=== PATIENT | male | born 1930 | race Caucasian/White ===

== ENCOUNTER 2018-05-04 16:55 | Inpatient (IN) | payer OTHER ==
[2018-05-04 18:11] VITALS: BMI 28.0
[2018-05-04] MEDS ORDERED: MAGNES/ALUMIN/SIMET 30ML UCUP PO PRN (18:43)
[2018-05-04] MEDS ORDERED: ONDANSETRON 4 MG/2 ML VIAL IV PRN (18:43)
[2018-05-04] MEDS ORDERED: MAGNESIUM HYDROXIDE 8% 30 ML PO PRN (18:44)
[2018-05-04] MEDS: NA CHLORIDE 0.9% 1,000 ML IV SCH (18:55)
[2018-05-04] MEDS: HYDROCODONE/APAP 7.5/325 MG TAB PO PRN (18:55)
[2018-05-04 19:16] LABS: Absolute Lymphocytes (CBC) 0.9 K/uL (0.7-4.9); Absolute Monocytes 1.8 K/uL (0.1-1.3); Absolute Neutrophil 16.8 K/uL (1.8-8.0); Basophils % 0.5 % (0-1.3); Eosinophils % 0.1 % (0-4.4); Hematocrit 39.9 % (39.6-49.0); Lymphocytes % 4.7 % (15.3-44.8); MCH 31.6 pg (27.0-35.0); MCV 91.8 fL (80-100); MPV 8.9 fL (7.6-11.3); Monocytes % 9.1 % (3.3-12.3); RBC Red Blood Cell Count 4.35 M/uL (4.33-5.43)
[2018-05-04 19:28] LABS: Potassium 3.7 mEq/L (3.6-5.0)
[2018-05-04 19:34] LABS: Albumin 4.1 g/dL (3.2-5.5); Bilirubin Total 0.7 mg/dL (0.3-1.2); Magnesium 1.6 mg/dL (1.8-2.5); Protein, Total 8.2 g/dL (6.0-8.3); Uric Acid 6.1 mg/dL (4.8-8.7)
[2018-05-04 20:07] LABS: Thyroid Stimulating Hormone 1.51 uIU/mL (0.34-5.60)
[2018-05-04] MEDS: ENOXAPARIN 40 MG/0.4 ML SQ SCH (20:25)
[2018-05-04] MEDS: PIPER/TAZO/NS 3.375gm 3.375 GM/100 ML BAG IVPB SCH (20:25)
[2018-05-04] MEDS: ATORVASTATIN 10 MG TAB PO SCH (20:26)
[2018-05-04] MEDS ORDERED: HOME MED 1 EA UNK (Pravastatin Sodium [Pravachol] 20 MG) PO SCH (21:00)
[2018-05-04] MEDS: ALPRAZOLAM 0.25 MG TABLET PO PRN (21:05)
[2018-05-04 21:43] LABS: Urine Appearance CLEAR; Urine Bilirubin NEGATIVE (NEG); Urine Blood NEGATIVE (NEG); Urine Color YELLOW; Urine Glucose NEGATIVE (NEG); Urine Protein NEGATIVE (NEG); Urine Specific Gravity 1.015 (1.005-1.030); Urine Urobilinogen 0.2 mg/dL (0.2-1.0); Urine pH 6.5 (5.0-7.0)
[2018-05-04 22:26] LABS: Blood Morphology Comment NOT SEEN (NOT SEEN); Platelet Estimate ADEQ; Urine White Blood Cell Casts OK
[2018-05-04 22:30] LABS: Urine Amorphous Sediment TRACE /HPF (NONE SEEN); Urine Bacteria <20 /HPF (NONE SEEN); Urine Culture Reflex Order NOT NEEDED; Urine RBC <5 /HPF (NONE SEEN)
[2018-05-05] MEDS: HYDROCODONE/APAP 7.5/325 MG TAB PO PRN ×4 (01:05→18:30)
[2018-05-05] MEDS: PIPER/TAZO/NS 3.375gm 3.375 GM/100 ML BAG IVPB SCH ×3 (01:06→16:32)
[2018-05-05] MEDS: NA CHLORIDE 0.9% 1,000 ML IV SCH ×4 (03:00→20:45)
--- NOTE | 2018-05-05 05:11 | HP ---
Date of Admission: 05/04/2018 Chief Complaint: Arm pain and chills. History Of Present Illness: This is an 87-year-old male patient, who was doing fine until all of a s udden this morning, he started to have some pain in his right arm near elbow area. He also noted rivera e swelling. Pain was worse with any movement. He denies any fall or injury. He started having chil ls when he came to office; and when he was sitting in exam room, he was really having back chills wit h feeling really bad and he was covered with blankets at the office and he was still shivering. Afte r I examined him, decision was made to admit him to the hospital. Review of Systems: Constitutional: As mentioned above. Musculoskeletal: As mentioned above. All other systems reviewed and negative. Medications: List reviewed. Allergies: NO KNOWN ALLERGIES. 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 Social History: Negative for smoking and alcohol use. Family History: Significant for leukemia and lung cancer. Past Surgical History: Hernia repair. Physical Examination: Vital Signs: Initial vital signs; temperature 103.6, pulse 109, respiratory rate 18, blood pressure 149/81, height 5 feet 3 inches, weight 158 pounds. General: Patient appearing ill, not feeling good at all. Not in any respiratory distress. HEENT: Head atraumatic, normocephalic. Conjunctivae nonerythematous. Sclerae white. Mouth, no thr ush or edema noted. Ears/Nose, no mass, lesion, discharge noted. Neck: Supple. No JVD, lymph nodes, bruit, thyromegaly noted. Lungs: Bilateral good equal air entry. Clear to auscultation. No rhonchi. No rales. Heart: Normal heart sounds, no murmur or gallop. Abdomen: Soft, bowel sounds normal. No guarding, rigidity, tenderness, mass, hepatosplenomegaly, dis tention, or bruit noted. Extremities: Presence of some swelling of the elbow region with painful range of motion. Skin over the right upper extremity is slightly warm to touch. No open wound. Skin: No rash, ulcer, cellulitis. Lymphatics: No lymph node enlargement in neck, supraclavicular, infraclavicular region. Neuro: No focal neurological deficit. Chest: Unremarkable. External Genitalia: Deferred. Rectal: Deferred. Laboratory Data: White count 19.7, hemoglobin 13.7, platelets 314. Sodium 133, potassium 3.7, chlor malaika 97, bicarb 25. BUN 11, creatinine 0.91, glucose 159, magnesium 1.6. Liver function tests unrema rkable. Procalcitonin 0.09, TSH 1.51. Urinalysis pending. Uric acid 6.1. Impression: 1.Cellulitis, right upper extremity. 2.Rule out sepsis. 3.Hypertension. 4.Hyperlipidemia. 5.Osteoarthritis, multiple sites. 6.Gastroesophageal reflux disease. 7.Impaired fasting glucose. Plan: Admit the patient to hospital for further evaluation and management of this problem. The ana paula ent is appropriate for inpatient and is expected to spend 2 midnights in hospital. We will go ahead and continue home medications per order. Start the patient on IV antibiotics per order. DVT prophyl axis will be given. I will see him tomorrow for followup. We will follow up on culture results. We will get x-ray done on his elbow region. The patient's daughter called after he was admitted to the hospital, who lives out of town and wanted some information. The patient has given me his permissio n to communicate with his daughter, and I did call her back and details were discussed with her. UQINTEN/YANDY Voice ID: [id number]
[2018-05-05 07:18] LABS: BUN Blood Urea Nitrogen 10 mg/dL (6-20); Bicarbonate 26 mEq/L (21-31); Glucose Level 169 mg/dL (65-120); Magnesium 1.7 mg/dL (1.8-2.5); Potassium 3.7 mEq/L (3.6-5.0); Sodium Level 136 mEq/L (135-145)
[2018-05-05] MEDS ORDERED: POTASSIUM 25 MEQ EFFERV TAB PO ONE (07:39)
[2018-05-05] MEDS: PANTOPRAZOLE 40MG TABLET PO SCH (08:06)
[2018-05-05] MEDS: ENOXAPARIN 40 MG/0.4 ML SQ SCH (08:07)
[2018-05-05] MEDS: ASPIRIN EC 325 MG TABLET PO SCH (08:07)
[2018-05-05] MEDS: AMLODIPINE 10 MG TAB PO SCH (08:30)
[2018-05-05] MEDS: MORPHINE 4 MG/ML SYR IV PRN ×3 (08:36→20:46)
[2018-05-05] MEDS ORDERED: HOME MED 1 EA UNK (Aspirin [Aspirin Ec 325 Mg] 325 MG) PO SCH (09:00)
[2018-05-05] MEDS ORDERED: MAGNESIUM SULFATE 1 gm IVPB 1 GM/100 ML BAG IV ONE (09:00)
[2018-05-05 11:07] LABS: A1c Component 0.61 mg/dL; Hemoglobin A1c 6.1 % (4-6.0)
[2018-05-05] MEDS: ATORVASTATIN 10 MG TAB PO SCH (20:45)
[2018-05-05] MEDS: ACETAMINOPHEN 500 MG TAB PO PRN (22:59)
[2018-05-05] MEDS: ALPRAZOLAM 0.25 MG TABLET PO PRN (23:00)
--- NOTE | 2018-05-05 23:44 | PN ---
Date of Progress Note: 05/05/2018 Subjective: The patient was seen this morning for followup. No new complaints or problems reported by patient. Lying in bed, not in any distress. Continues to have pain and swelling of the right upp er extremity all the way from the elbow to the right wrist area as he described today. Objective: Vital Signs: Reviewed. HEENT: Unremarkable. Lungs: Clear to auscultation. Heart: Heart sounds normal. Abdomen: Soft. Bowel sounds normal. No guarding, rigidity, tenderness, or distention. Extremities: No leg edema. Right upper extremity shows soft tissue swelling around elbow and around wrist area. Laboratory Data: Reviewed. Blood culture result pending. Impression: 1.Cellulitis, right upper extremity. 2.Hypertension. 3.Hyperlipidemia. 4.Osteoarthritis, multiple sites. Plan: We will go ahead and follow up on culture results. Continue Zosyn. The patient still has fev er but the magnitude of temperature spike is lower compared to what it was yesterday. We will get an echo with Doppler tomorrow to rule out any vegetation. It is surprising and little concerning and n ot sure why he keeps on having this recurrent infection as he had prior hospital admission about 5 months ago for the similar problem. QUINTEN/MODL Voice ID: [id number] Report ID: [id number]
[2018-05-06] MEDS: PIPER/TAZO/NS 3.375gm 3.375 GM/100 ML BAG IVPB SCH ×3 (00:20→17:18)
[2018-05-06] MEDS: MORPHINE 4 MG/ML SYR IV PRN ×5 (01:19→20:17)
[2018-05-06] MEDS: NA CHLORIDE 0.9% 1,000 ML IV SCH ×4 (03:00→20:12)
[2018-05-06] MEDS: HYDROCODONE/APAP 7.5/325 MG TAB PO PRN ×4 (04:09→21:23)
[2018-05-06 04:42] LABS: Absolute Monocytes 2.4 K/uL (0.1-1.3); Absolute Neutrophil 13.8 K/uL (1.8-8.0); Basophils % 0.8 % (0-1.3); Hematocrit 39.4 % (39.6-49.0); Lymphocytes % 5.8 % (15.3-44.8); MCV 92.4 fL (80-100); MPV 8.5 fL (7.6-11.3); Monocytes % 14.1 % (3.3-12.3); RBC Red Blood Cell Count 4.26 M/uL (4.33-5.43)
[2018-05-06 05:13] LABS: BUN Blood Urea Nitrogen 9 mg/dL (6-20); Bicarbonate 25 mEq/L (21-31); Glucose Level 159 mg/dL (65-120); Potassium 3.7 mEq/L (3.6-5.0); Sodium Level 135 mEq/L (135-145)
[2018-05-06] MEDS ORDERED: POTASSIUM CL SA 10 MEQ TAB PO ONE (06:30)
[2018-05-06] MEDS: AMLODIPINE 10 MG TAB PO SCH (08:11)
[2018-05-06] MEDS: PANTOPRAZOLE 40MG TABLET PO SCH (08:11)
[2018-05-06] MEDS: ENOXAPARIN 40 MG/0.4 ML SQ SCH (08:12)
[2018-05-06] MEDS: ASPIRIN EC 325 MG TABLET PO SCH (08:14)
--- NOTE | 2018-05-06 12:10 | RAD REPORT ---
EXAM DESCRIPTION: MRI - Elbow Right Wo Cont - 05/06/2018 11:56 am CLINICAL HISTORY: cellulitis Pain, swelling COMPARISON: No comparisons FINDINGS: A moderate elbow joint effusion is seen. Arthritic changes affect the elbow joint with los s of joint space and prominent osteophyte. Reticulation of the fat along the along the posterior and medial aspect of the elbow is seen. Edema i s present in the subcutaneous tissues in this region as well as the anterior forearm musculature. No focal fluid collection to suggest abscess. No finding to suggest osteomyelitis. Biceps tendon is intact. Triceps tendon is intact. Medial and lateral collateral ligaments of the elb ow are intact, albeit mildly thickened. IMPRESSION: Moderate elbow joint effusion is seen. Edema is seen the skin, subcutaneous tissues musc les surrounding the elbow joint, favoring inflammation/infection. No drainable abscess or osteomyelit is findings are appreciated.
--- NOTE | 2018-05-06 15:03 | ECHO ---
HEIGHT: 5 ft 3 in WEIGHT: 158 lb 0 oz DATE OF STUDY: 05/06/[address]: Gabe Jasmine MD 2-DIMENSIONAL: YES M.MODE: YES DOPPLER: YES COLOR FLOW: YES TDS: PORTABLE: DEFINITY: BUBBLE STUDY: DIAGNOSIS: RULE OUT ENDOCARDITIS CARDIAC HISTORY: CATHERIZATION: SURGERY: PROSTHETIC VALVE: PACEMAKER: MEASUREMENTS (cm) DIASTOLIC (NORMALS) SYSTOLIC (NORMALS) IVSd 1.0 (0.6-1.2) LA Diam 3.7 (1.9-4.0) LVEF 60-69% LVIDd 4.9 (3.5-5.7) LVIDs 3.6 (2.0-3.5) %FS 26% LVPWd 1.0 (0.6-1.2) Ao Diam 2.7 (2.0-3.7) 2 DIMENSIONAL ASSESSMENT: RIGHT ATRIUM: NORMAL LEFT ATRIUM: NORMAL RIGHT VENTRICLE: NORMAL LEFT VENTRICLE: NORMAL TRICUSPID VALVE: NORMAL MITRAL VALVE: NORMAL PULMONIC VALVE: NORMAL AORTIC VALVE: NORMAL PERICARDIAL EFFUSION: NONE AORTIC ROOT: NORMAL LEFT VENTRICULAR WALL MOTION: NORMAL DOPPLER/COLOR FLOW: IMPAIRED LEFT VENTRICULAR RELAXATION COMMENTS: NORMAL 2-DIMENSIONAL ECHOCARDIOGRAM. IMPAIRED LEFT VENTRICULAR RELAXATION. TECHNOLOGIST: ALEXI AGUIRRE
[2018-05-06] MEDS ORDERED: NA CHLORIDE 0.9% 1,000 ML ONE (17:24)
--- NOTE | 2018-05-06 19:57 | PN ---
Date of Progress Note: 05/06/2018 Subjective: The patient was seen this morning for followup. No new complaints or problems reported by the patient. He was sitting in the chair, feeling somewhat better today compared to last 2 days. He still has lot of pain in his right elbow and right wrist area. Swelling remains unchanged in thi s area. Objective: Vital Signs: Reviewed. The patient continues to have low-grade fever. HEENT: Unremarkable. Lungs: Clear to auscultation. Heart: Heart sounds normal. Abdomen: Soft. Bowel sounds normal. No guarding, rigidity, tenderness, or distention. Extremities: No leg edema. Swelling around the right elbow and right wrist remains unchanged. Laboratory Data: White count is elevated at 17.3, but better than what it was day before yesterday [facility] admission. Hemoglobin today 13.6, platelets 293. Sodium 135, potassium 3.7, chloride 99, bicarb 25, BUN 9, creatinine 0.80, glucose 159, magnesium 2, procalcitonin 0.17. Impression: 1.Cellulitis, right upper extremity. 2.Hypertension. 3.Hyperlipidemia. 4.Osteoarthritis, multiple sites. Plan: The patient's blood culture remains negative. We will continue Zosyn. He is feeling somewhat better today compared to last 2 days. White count is slightly better. We will continue current ant ibiotics. I will go ahead and get an MRI done on the right elbow and right wrist to check for any si gnificant effusion. Clinically, at least it does not appear to be the case. We will consider starti ng nonsteroidal anti-inflammatory medication either today or tomorrow. Continue pain medication per order. Ambulati on was suggested. QUINTEN/MODL Voice ID: [id number] Report ID: [id number]
[2018-05-06] MEDS: ALPRAZOLAM 0.25 MG TABLET PO PRN (20:10)
[2018-05-06] MEDS: ATORVASTATIN 10 MG TAB PO SCH (20:10)
[2018-05-07] MEDS: MORPHINE 4 MG/ML SYR IV PRN ×5 (00:22→20:18)
[2018-05-07] MEDS: PIPER/TAZO/NS 3.375gm 3.375 GM/100 ML BAG IVPB SCH ×3 (00:22→17:44)
[2018-05-07] MEDS: ACETAMINOPHEN 500 MG TAB PO PRN (01:02)
[2018-05-07] MEDS: NA CHLORIDE 0.9% 1,000 ML IV SCH ×2 (01:56→11:00)
[2018-05-07] MEDS: HYDROCODONE/APAP 7.5/325 MG TAB PO PRN ×3 (03:33→19:22)
[2018-05-07 07:05] LABS: Potassium 3.7 mEq/L (3.6-5.0)
[2018-05-07] MEDS: ASPIRIN EC 325 MG TABLET PO SCH (08:55)
[2018-05-07] MEDS: PANTOPRAZOLE 40MG TABLET PO SCH (08:55)
[2018-05-07] MEDS: ENOXAPARIN 40 MG/0.4 ML SQ SCH (08:55)
[2018-05-07] MEDS: AMLODIPINE 10 MG TAB PO SCH (08:56)
[2018-05-07] MEDS ORDERED: IBUPROFEN 400 MG TAB PO SCH (09:00)
[2018-05-07] MEDS ORDERED: POTASSIUM 25 MEQ EFFERV TAB PO ONE (09:00)
[2018-05-07] MEDS: IBUPROFEN 400 MG TAB PO SCH ×2 (10:18→20:03)
--- NOTE | 2018-05-07 14:30 | PN ---
Date of Progress Note: 05/07/2018 Subjective: The patient was seen this morning for followup. His daughter was present with him at [facility]. He was still having lot of pain in his elbow and wrist. No new complaints or problems report ed. Objective: Vital Signs: Reviewed. HEENT: Unremarkable. Lungs: Clear to auscultation. Heart: Sounds normal. Abdomen: Soft. Bowel sounds normal. No guarding, rigidity, tenderness, or distention. Extremities: No leg edema. Presence of swelling around the right elbow and right wrist present unch anged from yesterday, but better compared to what it was on the very first day when he came into the hospital. Laboratory Data: Sodium 136, potassium 3.7, chloride 101, bicarb 25, BUN 12, creatinine 0.85, glucos e 162. Blood culture remains negative. MRI of the right elbow shows moderate joint effusion. [facility] of [facility]. Echocardiogram was unremarkable, normal ejection fractur e. Impression: 1.Cellulitis, right upper extremity. 2.Rule out pseudogout. 3.Hypertension. 4.Osteoarthritis, multiple sites. Plan: We will go ahead and continue current antibiotics. We will add ibuprofen per order, and see h im tomorrow morning for followup. We will get blood work done tomorrow morning including parathyroid hormone level. The patient's TSH is normal. We will get phosphorus level along with some other rou esa labs. We will also get a rheumatoid factor and SUSIE done. Details were discussed with the patie nt's daughter and the patient regarding this. The patient to visit fig washer on outpatient basemy s. The patient's son sees a fig washer in [place] and will try to get appointment with the same specialist in [place]. QUINTEN/MODL Voice ID: [id number] Report ID: [id number]
[2018-05-07] MEDS: ATORVASTATIN 10 MG TAB PO SCH (20:04)
[2018-05-08] MEDS: MORPHINE 4 MG/ML SYR IV PRN ×3 (00:19→09:29)
[2018-05-08] MEDS: PIPER/TAZO/NS 3.375gm 3.375 GM/100 ML BAG IVPB SCH ×3 (00:19→18:14)
[2018-05-08 05:20] LABS: Absolute Lymphocytes (CBC) 1.2 K/uL (0.7-4.9); Absolute Monocytes 1.8 K/uL (0.1-1.3); Absolute Neutrophil 11.9 K/uL (1.8-8.0); Basophils % 0.6 % (0-1.3); Eosinophils % 0.7 % (0-4.4); Hematocrit 36.3 % (39.6-49.0); Lymphocytes % 7.8 % (15.3-44.8); MCH 32.3 pg (27.0-35.0); MCV 92.7 fL (80-100); MPV 8.2 fL (7.6-11.3); Monocytes % 12.1 % (3.3-12.3); RBC Red Blood Cell Count 3.91 M/uL (4.33-5.43)
[2018-05-08] MEDS: HYDROCODONE/APAP 7.5/325 MG TAB PO PRN ×3 (05:30→18:18)
[2018-05-08 05:50] LABS: Phosphorus 3.1 mg/dL (2.5-4.3); Potassium 3.6 mEq/L (3.6-5.0)
[2018-05-08] MEDS: NA CHLORIDE 0.9% 1,000 ML IV SCH (07:00)
[2018-05-08] MEDS: ENOXAPARIN 40 MG/0.4 ML SQ SCH (08:40)
[2018-05-08] MEDS: IBUPROFEN 400 MG TAB PO SCH ×3 (08:41→20:30)
[2018-05-08] MEDS: PANTOPRAZOLE 40MG TABLET PO SCH (08:41)
[2018-05-08] MEDS: AMLODIPINE 10 MG TAB PO SCH (08:42)
[2018-05-08] MEDS: ASPIRIN EC 325 MG TABLET PO SCH (08:43)
[2018-05-08] MEDS ORDERED: POTASSIUM 25 MEQ EFFERV TAB PO ONE (09:00)
[2018-05-08 09:58] LABS: Rheumatoid Factor NEG (NEG)
--- NOTE | 2018-05-08 11:44 | PN ---
Date of Progress Note: 05/08/2018 Subjective: The patient was seen this morning for followup. No new complaints or problems reported by the patient. He was sitting at bedside, still continues to have lot of pain in his right elbow, r ight wrist and left wrist area. Overall, it is better than before. No nausea. No vomiting. Objective: Vital Signs: Reviewed. HEENT: Unremarkable. Lungs: Clear to auscultation. Heart: Heart sounds normal. Abdomen: Soft. Bowel sounds normal. No guarding, rigidity, tenderness, or distention. Extremities: No leg edema. Right elbow and right wrist exam remains unchanged from yesterday. Left wrist exam remains unchanged. Left wrist pain and swelling are likely due to infiltrated IV. Laboratory Data: White count 15.1, hemoglobin 12.6, platelets 396. Sodium 139, potassium 3.6, chlor malaika 103, bicarb 25, BUN 12, creatinine 0.84, glucose 149. Ferritin level pending. Serum iron 16. Impression: 1.Cellulitis, right upper extremity. 2.Rule out pseudogout. 3.Hypertension. 4.Hyperlipidemia. 5.Osteoarthritis, multiple sites. Plan: We will continue current medications, IV antibiotics, Zosyn, and we will continue ibuprofen 60 0 mg 3 times a day. Ambulation was encouraged. I will see him tomorrow for followup. Possible disc harge in the next couple of days. Phosphorus level is normal. The patient's rheumatoid factor, SUSIE and parathyroid hormone level is pending. QUINTEN/MODL Voice ID: [id number] Report ID: [id number]
--- NOTE | 2018-05-08 12:36 | RAD REPORT ---
EXAM DESCRIPTION: RAD - Elbow Right 3 View - 05/08/2018 12:28 pm CLINICAL HISTORY: rule out pseudogout Elbow pain and swelling COMPARISON: Elbow Right Wo Cont dated 05/06/2018 FINDINGS: Soft tissue swelling is seen affecting the elbow. Mild osteoarthritic changes are noted. N o marginal or non-marginal erosions seen. An elbow joint effusion is likely present. No aggressive ma rrow lesion.
--- NOTE | 2018-05-08 12:37 | RAD REPORT ---
EXAM DESCRIPTION: RAD - Wrist Right 3 View - 05/08/2018 12:28 pm CLINICAL HISTORY: rule out pseudogout Pain and swelling COMPARISON: Wrist Right 3 View dated 12/09/2017 FINDINGS: Mild osteoarthritic changes are present involving the radiocarpal joint as well as the fir st carpometacarpal joint. Soft tissue swelling is seen about the wrist. Aortic atherosclerosis noted . No fracture, dislocation or erosion seen.
[2018-05-08 15:49] LABS: Ferritin 453.6 ng/ml (23.9-336.2)
[2018-05-08] MEDS: ATORVASTATIN 10 MG TAB PO SCH (20:30)
[2018-05-08] MEDS: ALPRAZOLAM 0.25 MG TABLET PO PRN (20:30)
[2018-05-09] MEDS: HYDROCODONE/APAP 7.5/325 MG TAB PO PRN ×4 (00:19→21:07)
[2018-05-09] MEDS: PIPER/TAZO/NS 3.375gm 3.375 GM/100 ML BAG IVPB SCH ×3 (00:20→17:25)
[2018-05-09 04:41] LABS: BUN Blood Urea Nitrogen 12 mg/dL (6-20); Bicarbonate 28 mEq/L (21-31); Glucose Level 156 mg/dL (65-120); Potassium 3.2 mEq/L (3.6-5.0); Sodium Level 138 mEq/L (135-145)
[2018-05-09] MEDS ORDERED: POTASSIUM 25 MEQ EFFERV TAB PO ONE (04:54)
[2018-05-09] MEDS: ACETAMINOPHEN 500 MG TAB PO PRN (05:27)
[2018-05-09] MEDS: ENOXAPARIN 40 MG/0.4 ML SQ SCH (08:42)
[2018-05-09] MEDS: ASPIRIN EC 325 MG TABLET PO SCH (08:43)
[2018-05-09] MEDS: AMLODIPINE 10 MG TAB PO SCH (08:43)
[2018-05-09] MEDS: PANTOPRAZOLE 40MG TABLET PO SCH (08:44)
[2018-05-09] MEDS: IBUPROFEN 400 MG TAB PO SCH ×4 (08:44→23:10)
[2018-05-09] MEDS ORDERED: POTASSIUM CL SA 10 MEQ TAB PO ONE (13:57)
[2018-05-09] MEDS: ATORVASTATIN 10 MG TAB PO SCH (21:07)
[2018-05-09] MEDS: ALPRAZOLAM 0.25 MG TABLET PO PRN (23:10)
--- NOTE | 2018-05-10 00:02 | PN ---
Date of Progress Note: 05/09/2018 Subjective: The patient was seen this morning for followup. No new complaints or problems reported by the patient. Lying in bed, not in any distress. Still having lot of pain in his right wrist and right elbow. Objective: Vital Signs: Reviewed. HEENT: Examination unremarkable. Lungs: Clear to auscultation. Heart: Heart sounds normal. Abdomen: Soft. Bowel sounds normal. No guarding, rigidity, tenderness, or distention. Extremities: No leg edema. Right elbow swelling is significantly better. Right wrist swelling is u nchanged from yesterday. Laboratory Data: Sodium 138, potassium 3.2, chloride 100, bicarb 28, BUN is 12, creatinine 0.76, glu cose 156. Impression: 1.Cellulitis, right upper extremity. 2.Rule out pseudogout. 3.Osteoarthritis, multiple sites. 4.Hypertension. 5.Hypokalemia. Plan: We will replace potassium per electrolyte replacement protocol. Continue current antibiotics and ibuprofen per order. Ambulation was encouraged. Orthopedic consultation was requested from Dr. Meyer to see if he can perform arthrocentesis to obtain some synovial fluid so we can send it for appropriate studies like uric acid and CPPD crystals and cell count. Details were discussed with Dr German Meyer and he has decided at this point not to perform any arthrocentesis of the elbow region co nsidering the swelling is better and with conservative treatment the patient has improved and doing a rthrocentesis in the wrist as described, so he will follow up on the patient again tomorrow, and by t omorrow if patient's condition is better/stable, we will plan to discharge him to go home tomorrow. If not tomorrow, may be day after tomorrow depending on his condition. We will repeat blood work tomorr ow morning. QUINTEN/MODL Voice ID: [id number] Report ID: [id number]
[2018-05-10] MEDS: PIPER/TAZO/NS 3.375gm 3.375 GM/100 ML BAG IVPB SCH ×2 (00:40→08:47)
[2018-05-10] MEDS: HYDROCODONE/APAP 7.5/325 MG TAB PO PRN ×2 (03:09→08:46)
[2018-05-10 04:19] LABS: Absolute Lymphocytes (CBC) 0.9 K/uL (0.7-4.9); Absolute Monocytes 1.4 K/uL (0.1-1.3); Absolute Neutrophil 8.9 K/uL (1.8-8.0); Basophils % 0.8 % (0-1.3); Eosinophils % 2.4 % (0-4.4); Hematocrit 34.6 % (39.6-49.0); MCH 31.7 pg (27.0-35.0); MCV 92.9 fL (80-100); Monocytes % 12.3 % (3.3-12.3); RBC Red Blood Cell Count 3.73 M/uL (4.33-5.43)
[2018-05-10 04:26] LABS: BUN Blood Urea Nitrogen 12 mg/dL (6-20); Bicarbonate 28 mEq/L (21-31); Glucose Level 147 mg/dL (65-120); Magnesium 1.9 mg/dL (1.8-2.5); Potassium 3.6 mEq/L (3.6-5.0); Sodium Level 140 mEq/L (135-145)
[2018-05-10] MEDS ORDERED: POTASSIUM 25 MEQ EFFERV TAB PO ONE (06:00)
[2018-05-10] MEDS: ASPIRIN EC 325 MG TABLET PO SCH (08:45)
[2018-05-10] MEDS: AMLODIPINE 10 MG TAB PO SCH (08:45)
[2018-05-10] MEDS: PANTOPRAZOLE 40MG TABLET PO SCH (08:45)
[2018-05-10] MEDS: ENOXAPARIN 40 MG/0.4 ML SQ SCH (08:45)
[2018-05-10] MEDS: IBUPROFEN 400 MG TAB PO SCH (08:46)
[2018-05-10 08:47] VITALS: BP 133/63
[2018-05-10 08:51] VITALS: TEMP 97.3
[2018-05-10 11:06] VITALS: O2SAT 99
--- NOTE | 2018-05-10 17:25 | CON ---
Date of Consultation: 05/09/2018 History Of Present Illness: This is my first time seeing this patient to my knowledge. He apparentl y on Wednesday of this week started having pain in his forearm, elbow, wrist and hand, was accompanie d by loss of motion of the wrist as well as elbow. He was seen and admitted. He has an MRI of the e lbow, which shows soft tissue swelling. He also has x-ray of the wrist, which demonstrates some arth rosclerotic calcifications. I was not consulted to see him until Wednesday, the . On my visualizat ion of him, he no longer had any erythema. He did have some swelling of the hand and fingers. There did not appear to be any effusion of the elbow or wrist, although he did have some swelling in the w rist. He did have some pain with motion of the fingers as well as the wrist; however, this was pain more less with extremes of motion. He did not have any pain with gentle range of motion. He is neur ovascularly intact. Review of his laboratories revealed that he had a significantly high white count ; however, it has been coming down steadily with antibiotics as well as anti-inflammatories. He also was apparently fairly febrile at 103 when he was admitted; however, now has been afebrile essentiall y since admission if febrile would be 101.5. He has had a slightly elevated temperature in the area of 100 and 99, however, not suggesting surgical fever. At this point, I do not really think there is enough fluid in the wrist to aspirate and there is no fluid in the elbow to aspirate. Assessment: I believe this gentleman for some reason has a lot of swelling and pain and inflammation of his right forearm, wrist, hand and elbow. This has essentially mostly resolved, now with continu ed swelling in his hand and some difficulty with wrist motion. I believe that this makes the most se nse that he did have cellulitis of the forearm, which caused swelling in his hands as a residual prob mark, which is now clearing. I spoke with Dr. Jasmine, who says that this has happened to him in the [facility] t and this is his second episode. These episodes are not apparently related to any specific trauma o r any other incident. We will go head and acquire a sed rate. Dr. Jasmine says that he will get a whit e count tomorrow. If he is afebrile and white count is improving, there is a possibility of discharg ing with instructions for elevation and range of motion of the hand. If he is discharged, I will hav e him follow up with me if he has any increasing pain or problems in a week and ensure that he is doi ng well. /YANDY Voice ID: [id number] Report ID: [id number]
--- NOTE | 2018-05-11 07:34 | DS ---
Date of Discharge: 05/10/2018 Disposition: Discharged to go home. Physical Examination: HEENT: Unremarkable. Lungs: Clear to auscultation. Heart: Sounds normal. Abdomen: Soft, bowel sounds normal. No guarding, rigidity, tenderness, or distention. Extremities: No leg edema. Minimum swelling of the right wrist, but right elbow swelling has almost completely resolved. Laboratory Data: Initial white count when he was admitted to the hospital was 19.7, hemoglobin 13.7, platelets 314. Last white count today 11.7, hemoglobin 11.8, platelets 474. His last chemistry today; sodium 140, potassium 3.6, chloride 101, bicarb 28, BUN 12, creatinine 0.76, glucose 147, magnesium 1.9. His C-reactive protein 208, done yesterday and ESR 82, done yesterday. Wrist x- ray and elbow x-ray show some changes of arthritis, but no fracture, no other acute changes. MRI of the right elbow shows joint effusion, no other acute findings. Discharge Medications: 1. Continue all prior home medications. 2. Augmentin 875 mg twice a day for 1 week. 3. Ibuprofen 600 mg p.o. 3 times a day for 1 week. Followup: Follow up at my office in 1 week. Hospital Course: An 87-year-old male patient, came into my office with complaints of pain in his arm and chills. Please see dictated H and P for more information. After the patient was evaluated at the office, he was admitted to the hospital with cellulitis of right upper extremity. He also had swelling of the right elbow and right wrist joint area. Uric acid level was normal and diagnosis of pseudogout was considered. Elbow MRI and wrist MRI were ordered. The patient got elbow MRI and he refused to have wrist MRI. He was started on IV Zosyn from the beginning and white count slowly, but surely improved on a day -to-day basis. We added ibuprofen 600 mg 3 times a day and with the combination of treatment, he became afebrile, white count came down to almost normal today. His pain has improved significantly. Orthopedic consultation was requested from Dr. Meyer and was requested for him to do arthrocentesis and to send synovial fluid for cell count, uric acid crystal and CPPD crystal, and Dr. Meyer evaluated the patient and suggested not to do any arthrocentesis considering the patient's condition was much better. The patient 's son sees a heel attacher in [place] and I have advised the patient's daughter to make sure that if that heel attacher can see the patient for consultation and she will schedule appointment for that. The patient is ambulating well. He sees his pain management physician, Dr. Montes De Oca for chronic pain management and takes hydrocodone and he was advised to follow up with him as soon as he gets discharge from the hospital. Final Diagnoses: 1. Cellulitis, right upper extremity. 2. Rule out pseudogout. 3. Hypertension. 4. Hyperlipidemia. 5. Anemia, unspecified. 6. Osteoarthritis, multiple sites. 7. Gastroesophageal reflux disease. 8. Impaired fasting glucose. QUINTEN/MODL Voice ID: [id number] Report ID: [id number]
== END 2018-05-10 10:31 | disposition home or self-care (01) | DRG 603 ==
LOC: 4TH 17:07
PROVIDERS: ADMIT Internal Medicine; ATTEND Internal Medicine
DX: L03.113 Cellulitis of right upper limb (principal); I10 Essential (primary) hypertension; E78.5 Hyperlipidemia, unspecified; M11.221 Other chondrocalcinosis, right elbow; D64.9 Anemia, unspecified; M15.9 Polyosteoarthritis, unspecified; K21.9 Gastro-esophageal reflux disease without esophagitis; R73.01 Impaired fasting glucose; E87.6 Hypokalemia
CPT/HCPCS: 36415; 80048; 80053; 81001; 82728; 83036; 83540; 83735; 83970; 84100; 84132; 84145; 84443; 84466; 84550; 85025; 85652; 86038; 86140; 86430; 87040; 87086; 87088; 93306; J1650; J2543; J3475; J7030

== ENCOUNTER 2019-06-09 11:05 | Inpatient (IN) | payer OTHER ==
--- OUTSIDE RECORDS SUMMARY | 2019-06-09 11:09 | XMS REPORT | Clinical Summary ---
:1930 Author Organization [facility] Address [address] [place] [address] Care Team Providers Name Role Phone Gabe Jasmine MD Primary Care Provider Allergies Active Allergy Reactions Severity Noted Date Comments Lactase High 06/01/2018 Medications Medication Sig Dispensed Refills Start End Status Date Date amLODIPine (NORVASC) Take 10 mg by 3 Active 10 mg tablet mouth daily. 8 pantoprazole TAKE 1 TABLET BY 3 Active (PROTONIX) 40 MG EC MOUTH EVERY DAY 8 tablet 30 MINUTES BEFORE BREAKFAST pravastatin Take 20 mg by 3 Active (PRAVACHOL) 20 MG mouth every 8 tablet evening. multivit-min36/iron/fo Take 1 tablet by 0 Active lic acid (GERITOL mouth daily. COMPLETE ORAL) FLUZONE HIGH-DOSE TO BE 0 Active 2017-19, PF, 180 ADMINISTERED BY 8 mcg/0.5 mL syringe IM PHARMACIST FOR injection IMMUNIZATION metoprolol tartrate Take 25 mg by 6 Active (LOPRESSOR) 25 mg mouth 2 (two) 8 tablet times a day. HYDROcodone-acetaminop Take 1 tablet by 0 Active hen (NORCO) 7.5-325 mg mouth 4 (four) 4 per tablet times a day. predniSONE (DELTASONE) 1 tab for 2 30 tablet 2 Active 5 mg tablet weeks then half 8 019 a tablet for 2 weeks hydroxychloroquine Take 1.5 tablets 45 tablet 3 Active (PLAQUENIL) 200 mg (300 mg total) 8 021 tablet by mouth daily. predniSONE (DELTASONE) TAKE 1 TABLET BY 30 tablet 0 Active 5 mg tablet MOUTH EVERY DAY 9 020 HYDROcodone-acetaminop Take 1 tablet by 0 Discontinued hen (NORCO) 7.5-325 mg mouth 3 (three) 8 018 per tablet times a day. predniSONE (DELTASONE) Take 3 tablets 90 tablet 0 Discontinued 5 mg tablet (15 mg total) by 8 018 mouth daily for 30 days. predniSONE (DELTASONE) Take 3 tablets 90 tablet 1 Discontinued 5 mg tablet (15 mg total) by 8 018 mouth daily for 30 days. carvedilol (COREG) Take 3.125 mg by 0 Discontinued 3.125 MG tablet mouth daily. 8 018 predniSONE (DELTASONE) Take 2 tablets 90 tablet 1 Discontinued 5 mg tablet of prednisone 8 018 for 2 more weeks. Then 1 tablet of prednisone for 1 week predniSONE (DELTASONE) Take 1 tablet (5 30 tablet 1 Discontinued 5 mg tablet mg total) by 8 018 mouth daily for 30 days. 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 10/17/2018 Telephone Rheumatology Tre Tan MA 09/05/2018 Telephone Rheumatology Tre Tan MA 09/03/2018 Refill Rheumatology Carol Ann Moe, 07/14/2018 Office Visit Rheumatology Carol Ann Moe, 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) (Primary Dx); DO USP systemic steroid user; Essential hypertension 07/05/2018 Telephone Rheumatology Tre Tan MA 06/15/2018 Hospital Encounter Radiology Fakoya, Latifa, RS3PE syndrome ( remitting DO seronegative symmetrical synovitis with pitting edema) 06/15/2018 Office Visit Rheumatology Carol Ann Moe, 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 Last Filed Vital Signs Vital Sign Reading Time Taken Blood Pressure 140/84 10/19/2018 8:58 AM SENIOR DATA INTEGRATION DEVELOPER Pulse 75 10/19/2018 8:58 AM SENIOR DATA INTEGRATION DEVELOPER Temperature 36.3 C (97.4 F) 10/19/2018 8:58 AM SENIOR DATA INTEGRATION DEVELOPER Respiratory Rate - - Oxygen Saturation - - Inhaled Oxygen Concentration - - Weight 72.1 kg (159 lb) 10/19/2018 8:58 AM SENIOR DATA INTEGRATION DEVELOPER Height 162.6 cm (5' 4") 10/19/2018 8:58 AM SENIOR DATA INTEGRATION DEVELOPER Body Mass Index 27.29 10/19/2018 8:58 AM SENIOR DATA INTEGRATION DEVELOPER Plan of Treatment Health Maintenance Due Date Last Done Comments SHINGLES VACCINES (#1) 1982 65+ PNEUMOCOCCAL VACCINE (1 of 2 - PCV13) 1997 INFLUENZA VACCINE 06/22/2019 Procedures Procedure Name Priority Date/Time Associated Diagnosis Comments XR HANDS 3 VW Routine 06/15/2018 12:01 RS3PE syndrome Results for this BILATERAL PM CDT (remitting procedure are in seronegative the results symmetrical section. synovitis with pitting edema) C-REACTIVE PROTEIN Routine 06/15/2018 11:31 RS3PE syndrome Results for this AM CDT (remitting procedure are in seronegative the results symmetrical section. synovitis with pitting edema) SEDIMENTATION RATE Routine 06/15/2018 11:31 RS3PE syndrome Results for this AM CDT (remitting procedure are in seronegative the results symmetrical section. synovitis with pitting edema) after 06/08/2018 Results XR Hands 3 Vw Bilateral (06/15/2018 12:01 PM CDT) Specimen Narrative Performed At EXAMINATION: XR HANDS 3 VW BILATERAL HM [facility] INDICATION: M65.88 Other synovitis and tenosynovitisother site, R60.9 Edemaunspecified, joint pain and swelling COMPARISON: None IMPRESSION: 3 views of each hand were obtained. Right hand: Severe grade 4 osteoarthrosis of the thumb carpometacarpal joint. Severe triscaphe osteoarthrosis. Severe osteoarthrosis of the distal interphalangeal joint of the middle finger. The remaining interphalangeal joints of the fingers demonstrate moderate osteoarthrosis. Moderate fourth metacarpal phalangeal osteoarthrosis. Mild to moderate remaining but carpophalangeal osteoarthrosis. Moderate radiocarpal and distal radioulnar osteoarthrosis. Vascular calcifications. Borderline widening of the scapholunate interval. Left hand: Severe grade 4 thumb carpometacarpal osteoarthrosis with subsidence of the thumb and a hitchhiker deformity. Severe triscaphe osteoarthrosis. Moderate osteoarthrosis of the proximal interphalangeal joint of the index finger. The remaining interphalangeal joints demonstrate mild to moderate osteoarthrosis. Moderate osteoarthrosis of the metacarpophalangeal joints of the index and middle fingers. Mild radiocarpal and distal radioulnar osteoarthrosis. Vascular calcifications. [facility]-[id number] Procedure Note Interface, Radiology Results Incoming - 06/15/2018 3:03 PM CDT EXAMINATION: XR HANDS 3 VW BILATERAL INDICATION: M65.88 Other synovitis and tenosynovitis other site, R60.9 Edema unspecified, joint pain and swelling COMPARISON: None IMPRESSION: 3 views of each hand were obtained. Right hand: Severe grade 4 osteoarthrosis of the thumb carpometacarpal joint. Severe triscaphe osteoarthrosis. Severe osteoarthrosis of the distal interphalangeal joint of the middle finger. The remaining interphalangeal joints of the fingers demonstrate moderate osteoarthrosis. Moderate fourth metacarpal phalangeal osteoarthrosis. Mild to moderate remaining but carpophalangeal osteoarthrosis. Moderate radiocarpal and distal radioulnar osteoarthrosis. Vascular calcifications. Borderline widening of the scapholunate interval. Left hand: Severe grade 4 thumb carpometacarpal osteoarthrosis with subsidence of the thumb and a hitchhiker deformity. Severe triscaphe osteoarthrosis. Moderate osteoarthrosis of the proximal interphalangeal joint of the index finger. The remaining interphalangeal joints demonstrate mild to moderate osteoarthrosis. Moderate osteoarthrosis of the metacarpophalangeal joints of the index and middle fingers. Mild radiocarpal and distal radioulnar osteoarthrosis. Vascular calcifications. [facility]-[id number] Performing Organization Address [facility] Phone Number [facility] [address] [place] [address] Sedimentation rate (06/15/2018 11:31 AM CDT) Sedimentation rate 5 0 - 30 mm/hr [facility] Specimen Blood Narrative Performed At Performed at: - [facility] [address], [id number] Senior Mechanical Engineer: Jarad Monae MD, Phone:[phone] Performing Organization Address [facility] Phone Number [facility] C-reactive protein (06/15/2018 11:31 AM CDT) CRP 12.4 (H) 0.0 - 4.9 mg/L [facility] Specimen Blood Narrative Performed At Performed at: - [facility] [address], [id number] Senior Mechanical Engineer: Jarad Monae MD, Phone:[phone] Performing Organization Address [facility] Phone Number [facility] after 06/08/2018 Insurance Payer Benefit Plan / Subscriber ID Effective Dates Phone Address Type Group MEDICARE MEDICARE PART A AND xxxxxxxxxxx 1997-[place], [place] Medicare B t AETNA AETNA [facility] xxxxxxxxx 2000-[facility] Erika MEANSEMDANETY t Advance Directives Patient has advance care planning documents on file. For more information, please contact:Charles [id number] [place] [address]
--- OUTSIDE RECORDS SUMMARY | 2019-06-09 11:09 | XMS REPORT ---
:1930 Author Organization [employer] Care Team Providers Name Role Phone Brennen Mariee Provider Role Unavailable Allergies, Adverse Reactions, Alerts Substance Reaction Event Type N.K.D.A. Info Not Available Non Drug Allergy Problems Problem Type Condition Code Onset Dates Condition Status Assessment Pain, joint, knee, right M25.561 Active Assessment Right sided sciatica M54.31 Active Problem Localized edema R60.0 Active Problem Primary osteoarthritis of right M17.11 Active knee Problem Pain, joint, knee, right M25.561 Active Assessment Primary osteoarthritis of right M17.11 Active knee Problem Right sided sciatica M54.31 Active Problem Effusion of right knee joint M25.461 Active Medications Medication Code System Code Instructions Start End Date Status Dosage Date Pravastatin [facility] 93240-287 Active not defined Sodium 0-10 Carvedilol [facility] 87307-671 Active not defined 1-01 Pantoprazole [facility] 87460-575 Active not defined Sodium 4-01 Metoprolol ND 0 Active not defined Tartrate PredniSONE [facility] 48831-518 Active not defined 2-43 Hydrocodone-Aceta [facility] 36883-890 Active not defined minophen 4-10 Results No Known Results Summary Purpose eClinicalWorks Submission
--- OUTSIDE RECORDS SUMMARY | 2019-06-09 11:10 | XMS REPORT ---
[...] Instructions Start End Date Status Dosage Date Metoprolol NDC 0 Active not defined Tartrate Carvedilol [facility] 73479-499 Active not defined 1-01 Pantoprazole [facility] 43384-767 Active not defined Sodium 4-01 Hydrocodone-Aceta [facility] 89982-442 Active not defined minophen 4-10 Pravastatin [facility] 33495-895 Active not defined Sodium 0-10 PredniSONE [facility] 34108-042 Active not defined 2-43 Results No Known Results Summary Purpose eClinicalWorks Submission
--- OUTSIDE RECORDS SUMMARY | 2019-06-09 11:10 | XMS REPORT ---
[...] Instructions Start End Date Status Dosage Date Hydrocodone-Aceta [facility] 45401-886 Active not defined minophen 4-[address] [facility] 10170-361 Active not defined 1-01 Metoprolol ND 0 Active not defined Tartrate Pravastatin [facility] 75991-412 Active not defined Sodium 0-[address] [facility] 07467-380 Active not defined 2-[address] [facility] 29206-297 Active not defined Sodium 4-01 Results No Known Results Summary Purpose eClinicalWorks Submission
[2019-06-09] MEDS ORDERED: CEFAZOLIN/SWI 1gm 1 GM/10 ML SYR IV SCH (11:45)
[2019-06-09] MEDS ORDERED: Ringers Lactate 1,000 ML IV SCH (12:00)
[2019-06-09 12:09] VITALS: BMI 26.2
--- NOTE | 2019-06-09 12:25 | RAD REPORT ---
EXAM DESCRIPTION: RAD - Chest Pa And Lat (2 Views) - 06/09/2019 12:14 pm CLINICAL HISTORY: pre op Chest pain. COMPARISON: Chest Pa And Lat (2 Views) dated 12/09/2017; CHEST SINGLE VIEW dated 10/25/2014; CHEST SIN GLE VIEW dated 10/21/2014; CHEST SINGLE VIEW dated 10/20/2014 FINDINGS: The lungs are clear. The heart is normal in size. No displaced fractures. IMPRESSION: No acute or concerning finding suspected.
[2019-06-09 12:34] LABS: Absolute Lymphocytes (CBC) 1.2 K/uL (0.7-4.9); Basophils % 0.8 % (0-1.3); Hematocrit 39.3 % (39.6-49.0); Lymphocytes % 6.7 % (15.3-44.8); MPV 8.9 fL (7.6-11.3); RBC Red Blood Cell Count 4.18 M/uL (4.33-5.43)
[2019-06-09 12:38] LABS: Protime INR 1.05
[2019-06-09 12:46] LABS: Albumin 4.2 g/dL (3.4-5.0); Bilirubin Direct 0.2 mg/dL (0-0.2); Bilirubin Total 0.6 mg/dL (0.2-1.0); Potassium 4.1 mmol/L (3.5-5.1)
--- NOTE | 2019-06-09 13:15 | PREOPHP ---
Date of Admission: 06/09/2019 History Of Present Illness: Lance Esparza is an 88-year-old male who had undergone 3 injections 1 w [place] apart using Hyalgan viscosupplementation into the intracapsular space of his right knee. On the weekend following his last injection, he started experiencing discomfort in his knee and right lower extremity and swelling has ensued that is quite tense and tight and threatening compartment syndrome in the right lower extremity. The patient is being admitted for fasciotomy incisions to relieve pres sure of swelling in the right lower extremity. This 88-year-old male received his 3rd viscosupplementation injection on 05/31/2019. He called on morning of 06/09/2019 indicating he was dealing with tense swelling in his right lower extremity be low the injected knee. He was asked to come to the office and presented with a tense and tight leg t hat warrants fasciotomy releases. The injection can have an allergic reaction. It develops over mul tiple injections and shows up subsequently as a systemic response of allergy to the protein hyalurona n within the viscosupplementation injection. The other possibility is that injection did not make it inside the joint capsule and deposit could have been in subcutaneous tissue where reaction could be stimulated. The possibility of infection is small as the patient has had no fever and no significant erythema or localized swelling around the injection site is noted. Medications: The patient's current medications include hydrocodone 7.5/325 one p.o. t.i.d. as prescr ibed by [facility]. He also takes metoprolol tartrate, pantoprazole sodium, pravasta tin sodium, carvedilol. The patient takes prednisone and states he last took a dose 2 days ago just discontinuing it on his own volition. Allergies: THERE ARE NO KNOWN ALLERGIES. 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 Social History: Negative for smoking and alcohol use. Family History: Significant for leukemia and lung cancer. Past Surgical History: Hernia repair. Physical Examination: VITAL SIGNS: Stable. NECK: Supple. CHEST: Clear to auscultation. HEART: Has a regular rate and rhythm. ABDOMEN: Soft and nontender. Active bowel sounds are present. GENITAL AND RECTAL: Deferred. EXTREMITIES: On examinations of the extremity, the patient has minimal swelling in the right knee it self. There is no significant effusion. The swelling is focused in the distal popliteal space and o jojo the calf muscle. There is pedal edema, 3+ on the anterior, lateral, and posterior aspects of the right lower extremity to include the foot and ankle. There is no warmth or erythema as mentioned at the knee, at the lateral parapatellar injection site, and no erythema or warmth in the lower extremi ty. Dorsiflexion of the ankle increases pain in the gastrocnemius muscles with passive stretch. The [id number] compression is positive for a Homans sign, dorsal pedis pulse and posterior tibialis pu lse cannot be palpated. The capillary refill upon pinching nail beds is slow. Assessment: Right lower extremity compartment syndrome, 9 days post viscosupplementation injection f rom the lateral parapatellar approach, right knee. Plan: This patient is admitted to the hospital. He had breakfast at 8 a.m. Early afternoon or mid afternoon scheduling for fasciotomy incisions is recommended for this right lower extremity compartme nt syndrome. BAIRON/YANDY Voice ID: [id number]
[2019-06-09] MEDS ORDERED: Ringers Lactate 1,000 ML IV ONE ×2 (13:56→17:10)
[2019-06-09] MEDS ORDERED: CEFAZOLIN/SWI 1gm 1 GM/10 ML SYR ONE (13:58)
[2019-06-09] MEDS ORDERED: PROPOFOL 200 MG/20 ML VIAL IV ONE (14:09)
[2019-06-09] MEDS ORDERED: MIDAZOLAM HCL 2 MG/2 ML INJ ONE (14:09)
[2019-06-09] MEDS ORDERED: NA CIT/CITRIC AC 30 ML ORAL UDC ONE (14:09)
[2019-06-09] MEDS ORDERED: FENTANYL CITR 100 MCG/2 ML ONE (14:10)
[2019-06-09] MEDS ORDERED: LIDOCAINE 1% MPF 2 ML AMPULE ONE (14:11)
[2019-06-09] MEDS ORDERED: EPHEDRINE SULF 50 MG/ML VIAL ONE (15:03)
[2019-06-09 16:39] LABS: Appearance TURBID (CLEAR); Body Fluid Source SYNOVIAL; Color of fluid Red (COLORLESS)
[2019-06-09 16:40] LABS: Body Fluid WBC 697 /mm^3
--- NOTE | 2019-06-09 17:13 | P.BOP ---
Preoperative diagnosis: RIGHT LOWER LEG COMPARTMENT SYNDROME Postoperative diagnosis: COMPARTMENT SYNDROME WITH DARK BLOOD IN POSTERIOR SUPERFICIAL COMPARTMENT Primary procedure: 2 INCISION 4 COMPARTMENT RIGHT LOWER LEG FASCIOTOMIES Secondary procedure: ASPIRATION RIGHT KNEE Pulmonary Physician: Brennen Mariee Estimated blood loss: 250 mL Specimen: NONE Findings: APPARENT HEMORRHAGE IN POSTERIOR SUPERFICIAL COMPARTMENT W/O HX TRAUMA Anesthesia: General Complications: None Implants: NONE Fluids & blood products: INJECTED 20 mL 0.5%[place] Transferred to: Recovery Room Condition: Good
--- NOTE | 2019-06-09 17:25 | P.CNS ---
Date of Consult: 06/09/19 Reason for Consult: Medical Mgmt Requesting Physician: Brennen Mariee Primary Care Provider: Dr Jasmine Chief Complaint: Swollen Leg History of Present Illness: This is an 88-year-old male with past medical history of hypertension, hyperlipidemia, osteoarthritis who was was admitted to the hospital for swollen right knee. Patient had undergone 3 injections 1 week apart using Hyalgan viscosupplementation into the intracapsular space of his right knee. On the weekend following his last injection, he started experiencing discomfort in his knee and right lower extremity. Patient stated that he had swelling in his right lower extremity below the injected knee. He was asked to come to the the orthopedic office where he was found to have tense and tight leg. Orthopedic refer the patient to come to the hospital and get admitted for possible fasciotomy for compartment syndrome. Patient had fasciotomy with orthopedic surgeon today and was recovering well. Patient was found to have venous blood and aspiration for most likely had trauma to the knee means during the injection. Medicine was consulted on the case for medical management and close monitoring Allergies No Known Drug Allergies Allergy (Verified 12/09/17 21:04) Unknown No Known Allergies Allergy (Uncoded 12/09/17 21:04) Unknown Home Medications: Amlodipine Besylate 10 mg PO DAILY 06/09/19 Hydrocodone Bit/Acetaminophen [Hydrocodon-Acetaminoph 7.5-325] 1 each PO TID PRN 06/09/19 Metoprolol Tartrate 25 mg PO BID 06/09/19 Pantoprazole [Protonix Tab] 40 mg PO DAILY 06/09/19 Pravastatin Sodium 20 mg PO DAILY AT SUPPER 06/09/19 - Past Medical/Surgical History Diabetic: No -: HTN -: Hyperlipidemia -: GERD -: Arthritis -: R knee surgery -: Appy - Family History Father Medical History: Heart disease Brother Notes: Leukemia Mother Medical History: Lung disease - Social History Alcohol use: Yes CD- Drugs: No Caffeine use: Yes Place of Residence: Home Review of Systems 10-point ROS is otherwise unremarkable Physical Examination Temp Pulse Resp BP Pulse Ox 98 F 98 H 16 122/60 94 06/09/19 16:50 06/09/19 17:00 06/09/19 17:00 06/09/19 17:00 06/09/19 12:00 General: Alert, In no apparent distress Respiratory: Clear to auscultation bilaterally, Normal air movement Cardiovascular: Regular rate/rhythm, Normal S1 S2 Gastrointestinal: Normal bowel sounds, No tenderness Musculoskeletal: Tenderness, Other (Right knee in the Wrap post surgery) Integumentary: No rashes Neurological: Normal speech, Normal affect Lymphatics: No axilla or inguinal lymphadenopathy Laboratory Data (last 24 hrs) 06/09/19 12:20: Sodium 141, Potassium 4.1, BUN 15, Creatinine 1.06, Glucose 142 H, Total Bilirubin 0.6, AST 19, ALT 26, Alkaline Phosphatase 101 06/09/19 12:20: PT 12.4, INR 1.05, APTT 31.5 06/09/19 12:20: WBC 17.2 H, Hgb 13.3 L, Hct 39.3 L, Plt Count 308 - Problems (1) Swelling of right knee joint Current Visit: Yes Status: Acute Plan: Swelling of the right knee concern for compartment syndrome after the knee injection -status post fasciotomy with fluid evacuation by orthopedics POD 0 -orthopedic is primary on the case -fluid collected and sent to micro for further analysis -will repeat knee MRI in next 24-48 hr after the swelling has subsided -will monitor MADELINE index closely for worsening of swelling her reoccurrence of compartment syndrome. -will follow along with orthopedics (2) Hypertension Onset Date: 10/22/14 Current Visit: No Status: Chronic Plan: Patient's blood pressure currently stable at this time -has been restarted on home medication will continue that here in the hospital -patient is on Norvasc and metoprolol Qualifiers: Hypertension type: essential hypertension Qualified Code(s): I10 - Essential (primary) hypertension (3) Hyperlipidemia Onset Date: 10/22/14 Current Visit: No Status: Chronic Plan: Will restart statin here in the hospital Qualifiers: Hyperlipidemia type: mixed hyperlipidemia Qualified Code(s): E78.2 - Mixed hyperlipidemia (4) Osteoarthritis, multiple sites Onset Date: 10/22/14 Current Visit: No Status: Chronic Qualifiers: Osteoarthritis type: primary Qualified Code(s): M15.0 - Primary generalized (osteo)arthritis Critical Care: No
[2019-06-09] MEDS ORDERED: HYDROCODONE/APAP 7.5/325 MG TAB PO PRN (17:26)
[2019-06-09] MEDS ORDERED: ONDANSETRON 4 MG/2 ML VIAL IV PRN (18:01)
[2019-06-09] MEDS ORDERED: DOCUSATE NA 100 MG CAP PO PRN (18:01)
[2019-06-09] MEDS: Ringers Lactate 1,000 ML IV SCH (18:58)
[2019-06-09] MEDS: MORPHINE 2 MG/ML SYR IV PRN (20:48)
[2019-06-09] MEDS: METOPROLOL TAR 25 MG TAB PO SCH (20:55)
[2019-06-09] MEDS: HYDROCODONE/APAP 7.5/325 MG TAB PO PRN (22:16)
[2019-06-10] MEDS: MORPHINE 2 MG/ML SYR IV PRN ×6 (00:44→22:36)
[2019-06-10] MEDS: CEFAZOLIN/SWI 1gm 1 GM/10 ML SYR IVP SCH ×2 (00:46→08:21)
--- NOTE | 2019-06-10 01:43 | OP ---
Date of Procedure: 06/09/2019 Surgeon: Brennen Mariee MD Service Cashier: Dr. Moy Mariee. Preoperative Diagnosis: Right lower leg compartment syndrome. Postoperative Diagnosis: Compartment syndrome with dark blood in the posterior superficial compartme nt. Primary Procedure: Two incision 4 compartment right lower leg fasciotomies. Indiations: This 88-year-old male had a series of 3 viscosupplementation injections for the right kn ee. His third injection was given on the 31 of May and the patient came in with complaints of pro found swelling in his right lower extremity on June 09. Over that 9 day period, the patient noticed some discomfort after the injection and slipped over 5 days developed significant swelling and called on the morning of June 09, 2019, to indicate he was concerned and made an appointment for Wednesday. I was advised of the tissue and asked him to come in on Wednesday morning instead of waiting through the weekend. On examination, the patient's leg was quite tense. He had pain with [id number] compressi on and AP compression in the area of the calf muscle. The passive extension of the ankle caused cesar re calf pain. The dorsalis pedis and posterior tibial pulses were not palpable. Capillary filling w as slower than 3 seconds. It was decided to take the patient to surgery. He had breakfast at 8 p.m. and his office exam was approximately 9:30 a.m. He was kept n.p.o. and scheduled for surgery to beg in after 2 o'clock. Technique: The patient was taken to the operating room and given a general anesthesia, time-out was called, and all pertinent facts were discussed. The decision was made to proceed with the operation as planned. The landmarks were marked to include medial and lateral malleolar, fibular head, tibial tubercle, and anterior border of the tibia then the incisions were drawn with the lateral incision be ginning 3 fingers below the tibial tubercle and extending to 3 fingers above the lateral malleolus. The incision was placed 1 fingerbreadth above the lateral of the fibula. The medial incision was hernan wn 2 fingers below the medial edge of the tibia, palpable in the subcutaneous tissue, it extended fro m 3 fingers below the tibial tubercle to 3 fingers above the medial malleolus. The tourniquet was el evated after exsanguination and the operation was initiated by making the lateral incision with spong es. We were able to create an anterior posterior flap and find the septae between the anterior and l ateral compartments. This was opened with a vertical incision on the spine. Patient opening both th e anterior compartment and the lateral compartment enough to have a curved Merida scissors slip in 2 cm above the septum and divide the fascial compartment cover distally and proximally. The Reva was u sed to control the fascial layer and the distal and proximal division of the lateral compartment was carried out 1 cm below the septum. There was hemostasis maintained with Bovie coagulation and there was then wet packing applied on the lateral side before attention was turned to making the incision o n the medial side of the right lower extremity. The incision medially was made 2 fingerbreadths belo w the medial border of the tibial shaft. This incision was carried down through the skin and subcuta neous tissue, the perforators were coagulated as encountered and the chief saphenous vein was retract ed anteriorly. A longitudinal slice was made in the fascia over the posterior superficial compartmen t and the curved Merida scissors were used to push and slice the fascial layer distally and proximally. The contents of the superficial compartment containing the soleus and gastrocnemius muscles was dif ferent than the compartments that were found in the lateral aspect of the leg. There was dark bloody fluid coating all surfaces in the posterior superficial compartment. Irrigation was used and a sour ce of bleeding was searched for without encountering any grossly leaking or oozing arteries or veins within the compartment. Punctate areas were coagulated and then the attention was turned to making e ntry into the deep posterior compartment. This was done by taking down a portion of the soleus bridg e and releasing it from the posterior tibia. The fascial layer was not distended in the posterior de ep compartment. A longitudinal slice was carried distally and proximally with a curved Merida scissor tips was no significant bleeding within that compartment. Irrigation was carried out and then wet-to -dry packing was inserted medially and laterally. An elastic closure was made with vessel loops on e ach side using proximal and distal skin tyler with a single vessel loop on each side ciao crossed looking to each margin with skin tyler until being passed through tyler at the proximal end of th e incision and tied. Both incisions were placed under elastic tension and as the swelling goes down the skin edges will be tending to approximate rather than widen and stay apart to require skin grafti ng. Four large ABD pads were used to cover the incisions on each side of the lower extremity and the n soft roll was used to wrap and hold them in place. The soft roll was applied from the toes to the midthigh and a 5 x 30 mm inch padded fiberglass splint was moistened and placed behind the leg to be secured with Zafar wraps. The incision edges had been injected with 20 mL of 0.5% Marcaine plain. Onc e the posterior splint was hardened and a long leg support with the ankle in a neutral position, then Zafar wraps were removed and an anterior split of the soft roll was carried out so that it could not b ecome constrictive and add to pressure within the dressing. Once the patient was taken to the recove ry room, he was quite comfortable and affable as he awakened. The Doppler was used to verify the pre sence of a weakly palpable dorsalis pedis pulse. The Zafar wraps were adjusted to allow access to the dorsalis pedis pulse for neurovascular checks to occur every 2 hours for 24 hours and then every shif t. The plan is for elevation of the right lower extremity with toe and ankle movement to encourage v enous return. The patient will be taken back to surgery in 48-72 hours for possible closure of the i ncisions. The initial association of the compartment syndrome with possible allergic reaction to Hya lgan injections is modified by the encounter of dark venous blood in the posterior superior superfici al compartment. In discussing the patient's medications, he admitted to taking 1-2 adult 325 mg aspi rins per day indicating that he heard they were good for him and they were not prescribed by any of h is physicians. BAIRON/YANDY Voice ID: [id number] Report ID: [id number]
[2019-06-10] MEDS: HYDROCODONE/APAP 7.5/325 MG TAB PO PRN ×5 (02:54→20:38)
[2019-06-10] MEDS: Ringers Lactate 1,000 ML IV SCH ×3 (02:57→20:39)
[2019-06-10 06:01] LABS: Hematocrit 33.4 % (39.6-49.0)
[2019-06-10] MEDS: METOPROLOL TAR 25 MG TAB PO SCH ×2 (08:21→20:38)
[2019-06-10] MEDS: AMLODIPINE 10 MG TAB PO SCH (08:22)
[2019-06-10] MEDS: PANTOPRAZOLE 40MG TABLET PO SCH (08:22)
--- NOTE | 2019-06-10 09:37 | EKG ---
Test Date: 2019-06-09 Test Time: 13:02:52 Agile Developer: SHAHLA MEASUREMENT RESULTS: Intervals: Rate: 86 NH: 136 QRSD: 90 QT: 384 QTc: 459 [place]: P: 49 NH: 136 QRS: 45 T: 55 INTERPRETIVE STATEMENTS: Normal sinus rhythm Normal ECG Compared to ECG 10/25/2014 10:54:26 No significant changes Electronically Signed On 06-10-19 09:35:51 CDT by Mart Cedillo
--- NOTE | 2019-06-10 12:40 | P.PN ---
Subjective Date of Service: 06/10/19 Primary Care Provider: Dr Jasmine Chief Complaint: Swollen Leg Review of Systems 10-point ROS is otherwise unremarkable Physical Examination - Vital Signs Temperature: 99.0 F Blood Pressure: 114/56 Pulse: 93 Respirations: 18 Pulse Ox (%): 90 - Physical Exam General: Alert, In no apparent distress HEENT: Atraumatic, PERRLA, EOMI Neck: Supple, JVD not distended Respiratory: Clear to auscultation bilaterally, Normal air movement Cardiovascular: Regular rate/rhythm, Normal S1 S2 Gastrointestinal: Normal bowel sounds, No tenderness Musculoskeletal: Tenderness (right leg with GAGAN wrap ) Integumentary: No rashes Neurological: Normal speech, Normal tone, Normal affect Lymphatics: No axilla or inguinal lymphadenopathy - Studies Laboratory Data (last 24 hrs) 06/10/19 05:34: Hgb 11.5 L, Hct 33.4 L D 06/09/19 12:20: Sodium 141, Potassium 4.1, BUN 15, Creatinine 1.06, Glucose 142 H, Total Bilirubin 0.6, AST 19, ALT 26, Alkaline Phosphatase 101 06/09/19 12:20: PT 12.4, INR 1.05, APTT 31.5 Medications List Reviewed: Yes Assessment And Plan - Current Problems (Diagnosis) (1) Swelling of right knee joint Current Visit: Yes Status: Acute Plan: Swelling of the right knee concern for compartment syndrome after the knee injection -status post fasciotomy with fluid evacuation by orthopedics POD 1 -orthopedic is primary on the case -fluid collected and sent to micro for further analysis -will repeat knee MRI in next 24-48 hr after the swelling has subsided -will monitor MADELINE index closely for worsening of swelling her reoccurrence of compartment syndrome. -will follow along with orthopedics (2) Hypertension Onset Date: 10/22/14 Current Visit: No Status: Chronic Plan: Patient's blood pressure currently stable at this time -has been restarted on home medication will continue that here in the hospital -patient is on Norvasc and metoprolol Qualifiers: Hypertension type: essential hypertension Qualified Code(s): I10 - Essential (primary) hypertension (3) Hyperlipidemia Onset Date: 10/22/14 Current Visit: No Status: Chronic Plan: Restarted statin here in the hospital Qualifiers: Hyperlipidemia type: mixed hyperlipidemia Qualified Code(s): E78.2 - Mixed hyperlipidemia (4) Osteoarthritis, multiple sites Onset Date: 10/22/14 Current Visit: No Status: Chronic Qualifiers: Osteoarthritis type: primary Qualified Code(s): M15.0 - Primary generalized (osteo)arthritis Discharge Plan: Home Plan to discharge in: 48 Hours - Code Status/Comfort Care Code Status Assessed: Yes Critical Care: No
--- NOTE | 2019-06-10 15:06 | P.PN ---
Date of Service: 06/10/19 (POD#1) S: PATIENT COMFORTABLE IN BED WITH RLE ELEVATED, INDICATES HE'S PLEASED WITH PAIN MED RELIEF DESPITE PAIN RECORD 7,9,8,5,10/10 INTENSITY. O: VSS, TEMP 99.5 MAX. HGB 11.5 DOWN FROM PREOP 13.3. GRAM STAINS ASPIRATE RIGHT KNEE - NO WBC'S,NO ORGANISMS, PRELIMINARY NO GROWTH. DARK SEMI-CLOTTED BLOOD FOUND IN POSTERIOR SUPERFICIAL COMPARTMENT WITH SOLEUS AND GASTROC MUSCLES SUGGESTS SPONTANEOUS HEMORRHAGE MAY HAVE BEEN INCITING COMPARTMENT SYNDROME. PATIENT ADMITS TO TAKING ASA 325mg REGULARLY UPON AWAKENING, AND A SECOND DOSE AFTER LUNCH IF HE FEELS A BIT PUNK. THIS IS SELF- PRESCRIBED, NOT LISTED WITH MEDS. PATIENT DEMONSTRATES DORSIFLEXION OF TOES, NO DRAINAGE FROM BANDAGE. PATIENT WAS ABLE TO LEFT LEG AND STAND TO AMBULATE 15 ' x 2 WITH FWW. INSPIROMETER ON TRAY, BEING USED. A: LOOKING MORE LIKE SPONTANEOUS HEMORRHAGE IN LOWER LEG COULD BE ETIOLOGY OF COMPARTMENT SYNDROME. PATIENT DENIES ANY TRAUMA, HAD NO BRUISES. LOOKED FOR ACTIVE BLEEDING AND FOUND NO UNUSUAL OR PULSATING BLEEDING POINTS OTHER THAN INCISION RELATED ACTIVITY THAT WAS CAUTERIZED. P: PLAN RETURN TO SURGERY FOR BANDAGE CHANGE AND POSSIBLE CLOSURE OF INCISIONS WEDNESDAY OR WEDNESDAY; AVERAGE FOR CLOSURE OF FASCIOTOMIES IS ONE WEEK. CONTINUE MOBILIZATION, PATIENT NOT SAFE FOR HOME CARE AT PRESENT. NEEDS FWW. USING ELASTIC STOCKING, AND SEQUENTIAL COMPRESSIONS FOR LLE.
[2019-06-10] MEDS: ATORVASTATIN 10 MG TAB PO SCH (16:06)
[2019-06-10] MEDS ORDERED: HOME MED 1 EA UNK (Pravastatin Sodium [Pravastatin Sodium] 20 MG) PO SCH (17:00)
[2019-06-10 18:13] LABS: Urine Appearance CLEAR; Urine Bilirubin NEGATIVE (NEG); Urine Blood NEGATIVE (NEG); Urine Color YELLOW; Urine Glucose NEGATIVE (NEG); Urine Protein NEGATIVE (NEG); Urine Specific Gravity 1.015 (1.005-1.030); Urine Urobilinogen 0.2 mg/dL (0.2-1.0)
[2019-06-10 18:16] LABS: Urine Microscopic Reflex NO UMIC
[2019-06-11] MEDS: HYDROCODONE/APAP 7.5/325 MG TAB PO PRN ×6 (00:26→23:41)
[2019-06-11] MEDS: MORPHINE 2 MG/ML SYR IV PRN ×5 (02:30→20:36)
[2019-06-11] MEDS: PANTOPRAZOLE 40MG TABLET PO SCH (06:23)
[2019-06-11 06:48] LABS: Hematocrit 36.2 % (39.6-49.0)
[2019-06-11] MEDS: METOPROLOL TAR 25 MG TAB PO SCH ×2 (09:22→20:35)
[2019-06-11] MEDS: AMLODIPINE 10 MG TAB PO SCH (09:23)
[2019-06-11] MEDS: Ringers Lactate 1,000 ML IV SCH ×2 (10:01→17:05)
--- NOTE | 2019-06-11 13:09 | P.PN ---
Subjective Date of Service: 06/11/19 Primary Care Provider: Dr Jasmine Chief Complaint: Swollen Leg Subjective: Tolerating diet, Improving, Working w/ PT, Doing well Review of Systems 10-point ROS is otherwise unremarkable Physical Examination - Vital Signs Temperature: 99.4 F Blood Pressure: 143/65 Pulse: 98 Respirations: 19 Pulse Ox (%): 96 - Physical Exam General: Alert, In no apparent distress Respiratory: Clear to auscultation bilaterally, Normal air movement Cardiovascular: Regular rate/rhythm, Normal S1 S2 Gastrointestinal: Normal bowel sounds, No tenderness Musculoskeletal: Erythema, Tenderness, Warmth Integumentary: No rashes Neurological: Normal speech, Normal tone, Normal affect Lymphatics: No axilla or inguinal lymphadenopathy - Studies Laboratory Data (last 24 hrs) 06/11/19 06:02: Hgb 12.4 L, Hct 36.2 L Microbiology Data (last 24 hrs): 06/09/19 14:42 Wound - Aspirate Gram Stain - Final 06/09/19 14:42 Wound - Aspirate Gram Stain - Final Medications List Reviewed: Yes Assessment And Plan - Current Problems (Diagnosis) (1) Swelling of right knee joint Current Visit: Yes Status: Acute Plan: Swelling of the right knee concern for compartment syndrome after the knee injection -status post fasciotomy with fluid evacuation by orthopedics POD 3 -orthopedic is primary on the case -fluid collected and sent to micro for further analysis -will repeat knee MRI in next 24-48 hr after the swelling has subsided -will monitor MADELINE index closely for worsening of swelling her reoccurrence of compartment syndrome. -will follow along with orthopedics (2) Hypertension Onset Date: 10/22/14 Current Visit: No Status: Chronic Plan: Patient's blood pressure currently stable at this time -has been restarted on home medication will continue that here in the hospital -patient is on Norvasc and metoprolol Qualifiers: Hypertension type: essential hypertension Qualified Code(s): I10 - Essential (primary) hypertension (3) Hyperlipidemia Onset Date: 10/22/14 Current Visit: No Status: Chronic Plan: Restarted statin here in the hospital Qualifiers: Hyperlipidemia type: mixed hyperlipidemia Qualified Code(s): E78.2 - Mixed hyperlipidemia (4) Osteoarthritis, multiple sites Onset Date: 10/22/14 Current Visit: No Status: Chronic Qualifiers: Osteoarthritis type: primary Qualified Code(s): M15.0 - Primary generalized (osteo)arthritis Discharge Plan: Home Plan to discharge in: Greater than 2 days - Code Status/Comfort Care Code Status Assessed: Yes Critical Care: No
--- NOTE | 2019-06-11 13:53 | P.PN ---
Date of Service: 06/11/19 (POD#2) S: PATIENT COMFORTABLE IN BED WITH RLE ELEVATED, O: PAIN RECORD 7,5,0,0,10/10 INTENSITY. VSS, TEMP 99.4 MAX. HGB 12.4, STABLE. GRAM STAINS NEGATIVE FOR ASPIRATE RIGHT KNEE - NO WBC'S,NO ORGANISMS, NO GROWTH 48 HRS. OPENED BANDAGE, INCISIONS CLEAN WITHOUT EXCESSIVE BLEEDING. PATIENT DEMONSTRATES DORSIFLEXION OF TOES, DP PULSE INTACT. CAPILLARY FILLING BRISK. PATIENT WAS ABLE TO LEFT LEG AND AMBULATE 25' WITH FWW. A: SPONTANEOUS HEMORRHAGE IN LOWER LEG COULD BE ETIOLOGY OF COMPARTMENT SYNDROME. PATIENT DENIES ANY TRAUMA, P: PLAN RETURN TO SURGERY FOR BANDAGE CHANGE AND POSSIBLE CLOSURE OF INCISIONS WEDNESDAY; AVERAGE TIME FOR CLOSURE OF FASCIOTOMY INCISIONS IS ONE WEEK. CONTINUE MOBILIZATION TOLERATED.
[2019-06-11] MEDS: ENOXAPARIN 40 MG/0.4 ML SQ SCH (16:51)
[2019-06-11] MEDS: ATORVASTATIN 10 MG TAB PO SCH (16:52)
[2019-06-12] MEDS: MORPHINE 2 MG/ML SYR IV PRN ×3 (00:31→08:34)
[2019-06-12] MEDS: HYDROCODONE/APAP 7.5/325 MG TAB PO PRN ×3 (03:52→16:32)
[2019-06-12] MEDS: Ringers Lactate 1,000 ML IV SCH ×2 (05:12→10:04)
[2019-06-12 05:59] LABS: Absolute Lymphocytes (CBC) 0.9 K/uL (0.7-4.9); Basophils % 0.3 % (0-1.3); Lymphocytes % 5.4 % (15.3-44.8); MPV 8.7 fL (7.6-11.3); RBC Red Blood Cell Count 3.63 M/uL (4.33-5.43)
[2019-06-12] MEDS: PANTOPRAZOLE 40MG TABLET PO SCH ×2 (06:47→08:33)
[2019-06-12] MEDS: AMLODIPINE 10 MG TAB PO SCH (08:33)
[2019-06-12] MEDS: METOPROLOL TAR 25 MG TAB PO SCH ×2 (08:33→21:31)
[2019-06-12] MEDS ORDERED: LORazepam 2 MG/ML VIAL IV PRN (10:02)
[2019-06-12] MEDS ORDERED: LORazepam 2 MG/ML VIAL IV ONE (10:02)
--- NOTE | 2019-06-12 14:07 | RAD REPORT ---
EXAM DESCRIPTION: Wily Allen Cont06/12/2019 1:54 pm CLINICAL HISTORY: Right knee pain and swelling COMPARISON: None. TECHNIQUE: Axial, sagittal and coronal magnetic resonance imaging of the right knee was obtained. FINDINGS: Medial meniscus is not seen. Marked narrowing of the medial compartment. Osteochondral def ects involving the medial femoral condyle and medial tibial plateau measuring up to 16 millimeters. Tear involves the anterior horn of the lateral meniscus Normal appearing ACL is not seen. PCL is intact. The medial and the lateral collateral ligaments appear normal. The visualized patellar and quadriceps tendons are unremarkable. The patellar facet cartilage appears normal. The patellar retinacula are intact. Large joint effusion. Suprapatellar plica IMPRESSION: Medial meniscus is not seen. Presumably the patient has had a meniscectomy. If not this represents a tear Marked osteoarthritis involves the medial compartment with osteochondral defect involving the medial tibial plateau and medial femoral condyle Lateral meniscal tear Large joint effusion ACL is not seen. 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
[2019-06-12] MEDS: VANCOMYCIN 1.25 GM in NA CHLORIDE 0.9% 250 ML IVPB SCH (14:11)
[2019-06-12] MEDS ORDERED: CEFAZOLIN/NS 1gm 1 GM/50 ML BAG IVPB SCH (16:30)
[2019-06-12] MEDS: ATORVASTATIN 10 MG TAB PO SCH (16:35)
[2019-06-12] MEDS: ENOXAPARIN 40 MG/0.4 ML SQ SCH (16:35)
[2019-06-12] MEDS ORDERED: CEFAZOLIN/SWI 1gm 1 GM/10 ML SYR IVP SCH (17:00)
--- NOTE | 2019-06-12 17:23 | P.PN ---
Subjective Date of Service: 06/12/19 Primary Care Provider: Dr Jasmine Chief Complaint: Swollen Leg Review of Systems 10-point ROS is otherwise unremarkable Physical Examination - Vital Signs Temperature: 101.6 F Blood Pressure: 136/67 Pulse: 108 Respirations: 16 Pulse Ox (%): 94 - Physical Exam General: Alert, In no apparent distress HEENT: Atraumatic, PERRLA, EOMI Neck: Supple, JVD not distended Respiratory: Clear to auscultation bilaterally, Normal air movement Cardiovascular: Regular rate/rhythm, Normal S1 S2 Gastrointestinal: Normal bowel sounds, No tenderness Musculoskeletal: Erythema, Tenderness, Warmth, Other (right Knee in GAGAN wrap. Left Elbow Inflammed and Tender to touch. Unable to do flexion and Extension without pain) Integumentary: No rashes Neurological: Normal speech, Normal tone, Normal affect Lymphatics: No axilla or inguinal lymphadenopathy - Studies Laboratory Data (last 24 hrs) 06/12/19 05:34: WBC 16.6 H, Hgb 11.8 L, Hct 34.0 L, Plt Count 250 Microbiology Data (last 24 hrs): 06/09/19 14:42 Wound - Aspirate Gram Stain - Final Medications List Reviewed: Yes Assessment And Plan - Current Problems (Diagnosis) (1) Swelling of right knee joint Current Visit: Yes Status: Acute Plan: Swelling of the right knee concern for compartment syndrome after the knee injection -status post fasciotomy with fluid evacuation by orthopedics POD 4 -orthopedic is primary on the case -fluid collected and sent to micro + for staph Coagulase -Knee MRI consistent with Large Effusion and Lateral menicsus Tear. -Started on IV Vanc and IV ancef -Repeated OR procedure scheduled yanci with ortho (2) Hypertension Onset Date: 10/22/14 Current Visit: No Status: Chronic Plan: Patient's blood pressure currently stable at this time -has been restarted on home medication will continue that here in the hospital -patient is on Norvasc and metoprolol Qualifiers: Hypertension type: essential hypertension Qualified Code(s): I10 - Essential (primary) hypertension (3) Hyperlipidemia Onset Date: 10/22/14 Current Visit: No Status: Chronic Plan: Restarted statin here in the hospital Qualifiers: Hyperlipidemia type: mixed hyperlipidemia Qualified Code(s): E78.2 - Mixed hyperlipidemia (4) Osteoarthritis, multiple sites Onset Date: 10/22/14 Current Visit: No Status: Chronic Qualifiers: Osteoarthritis type: primary Qualified Code(s): M15.0 - Primary generalized (osteo)arthritis - Plan Pending Clinical Improvement. Pt scheduled for Repeat Washout yanci with Orthopedics Discharge Plan: Home Plan to discharge in: Greater than 2 days - Code Status/Comfort Care Code Status Assessed: Yes Critical Care: No
[2019-06-12] MEDS ORDERED: ACETAMINOPHEN 500 MG TAB PO PRN (17:37)
--- NOTE | 2019-06-12 18:08 | RAD REPORT ---
EXAM DESCRIPTION: RAD - Chest Single View - 06/12/2019 6:02 pm CLINICAL HISTORY: fever/ post surgical Chest pain. COMPARISON: Chest Pa And Lat (2 Views) dated 06/09/2019; Chest Pa And Lat (2 Views) dated 12/09/2017; CHEST SINGLE VIEW dated 10/25/2014; CHEST SINGLE VIEW dated 10/21/2014 FINDINGS: Portable technique limits examination quality. Ill-defined opacity in the right lung base likely representing atelectasis or early pneumonia/infiltr ate. The heart is normal in size. No displaced fractures.
--- NOTE | 2019-06-12 19:49 | P.PN ---
Date of Service: 06/12/19 (POD#3) S: PATIENT SEEN TWICE TODAY. 1ST VISIT ~ 13:15 PATIENT WAS BEING ROLLED OUT OF ROOM FOR MRI OF RIGHT KNEE. LIMITED CONTACT, BUT PATIENT HAD NEW C/O LEFT ELBOW PAIN AND SWELLING ECLIPSING CONCERN ABOUT RIGHT KNEE. OUTCRY ACCOMPANIED PASSIVE MOVEMENT LEFT ELBOW AND PALPATION OF 3+ EFFUSION. PALPATION OF RIGHT PATELLA UNDER GAGAN WRAP ALLOWED UP AND DOWN AND SIDE TO SIDE MOVEMENT WITHOUT PAIN OR DISCOMFORT. DISCUSSED MEDICAL HISTORY WITH DAUGHTER IN ROOM AFTER PATIENT GONE. SHE DESCRIBED MULTIPLE EPISODES OF PATIENT'S JOINTS BEING SWOLLEN WITH LIMB BELOW JOINT MASSIVELY EDEMATOUS. PRIOR EPISODES WERE DXED CELLULITIS, BUT SHE ALSO RECALLED THE WORD PSEUDOGOUT. O: PAIN RECORD 10,10,7,5,5,5/10 INTENSITY. TEMP 101.6 MAX DOWN WITH TYLENOL,P 108,O2 SAT 94.. HGB 11.8, STABLE. GRAM STAINS NEGATIVE FOR ASPIRATE RIGHT KNEE - NO WBC'S,NO ORGANISMS, NO GROWTH 48 HRS. 1+STAPH COAG+REPORTED ON POD#3 PRELIMINARYISOLATED FROM [facility] ONLY. REPEAT CXR SHOWING INFILTRATE RLL PROB ATELECTASIS OR EARLY PNEUMONIA. PATIENT NOW ON IV ZOSYN AND VANCOMYCIN. PATIENT DEMONSTRATES DORSIFLEXION OF TOES, DP PULSE INTACT. CAPILLARY FILLING BRISK. PATIENT IS ABLE TO LIFT LEG,BUT UNABLE TO AMBULATE WITH PT TODAY. PATIENT WAS STARTED ON LOVENOX 40 MG SQ YESTERDAY, PUT ON HOLD AFTER TODAY'S DOSE. A: DOUBT "[facility] ONLY" REPORT, LAB NOTORIOUS FOR FALSE POSITIVES. PLAN TO REPEAT ASPIRATION RIGHT KNEE AND ASPIRATE LEFT ELBOW AT SURGERY TO CLOSE FASCIOTOMY INCISIONS TOMORROW IF PATIENT'S CONDITION ALLOWS. AGREE WITH IV ANTIBIOTICS AFTER TEMP ELEVATIONS, CXR REPORT AND LEFT ELBOW FLARE OF SYMPTOMS. P: PLAN RETURN TO SURGERY FOR BANDAGE CHANGE AND POSSIBLE CLOSURE OF INCISIONS WEDNESDAY 12:30 PM POD#4; AVERAGE TIME FOR CLOSURE OF FASCIOTOMY INCISIONS IS ONE WEEK. RESUME MOBILIZATION WHEN TOLERATED.
[2019-06-12] MEDS: PIPER/TAZO/NS 2.25gm 2.25 GM/50 ML BAG IV SCH (21:36)
[2019-06-13] MEDS: PIPER/TAZO/NS 2.25gm 2.25 GM/50 ML BAG IV SCH ×5 (00:13→23:30)
[2019-06-13] MEDS: MORPHINE 2 MG/ML SYR IV PRN ×3 (01:07→08:33)
[2019-06-13] MEDS ORDERED: MAGNESIUM HYDROXIDE 8% 30 ML PO PRN (07:43)
[2019-06-13] MEDS: METOPROLOL TAR 25 MG TAB PO SCH ×2 (08:40→21:00)
[2019-06-13] MEDS: AMLODIPINE 10 MG TAB PO SCH (08:41)
[2019-06-13] MEDS: Ringers Lactate 1,000 ML IV SCH ×2 (10:48→16:41)
--- NOTE | 2019-06-13 10:57 | PN ---
Date of Progress Note: 06/13/2019 Subjective: Patient was seen this morning for followup. I have reviewed current hospital record. Jazmin rodriguez was lying in bed, not in any distress. Vital signs reviewed. Nurses reported that the patient had 6 second run of SVT around 4 o'clock this morning. He was hemodynamically stable and asymptomatic. When I saw him this morning along with complaints of pain in his right leg, he was also complaining of pain in his left elbow. In the past, the patient had pseudogout type of problem requiring use of prednisone in the past. He denies any fall or injury and his left elbow pain he says is going on for 2 days. Objective: Vital Signs: Reviewed. HEENT: Unremarkable. Lungs: Clear to auscultation. No rhonchi. No rales. Heart: Sounds normal. Abdomen: Soft. Bowel sounds normal. No guarding, rigidity, tenderness, distention. Extremities: Right lower extremity is covered with a surgical dressing and Zafar wrap. His movement o f right foot toes is normal. No tingling or numbness. Dorsalis pedis pulsation of right foot is nor mal. Left elbow has very minimum swelling on the medial aspect around the elbow. There is no joint effusion that was appreciated on exam today, but range of movement is significantly painful. Skin is normal color and normal temperature in the area of his left elbow pain. Laboratory Data: Cultures so far remain negative. Last white count yesterday 16.6, hemoglobin 11.8, platelets 250. This morning, hemoglobin 11.6. Upon admission, chemistry; sodium 141, potassium 4.1 , chloride 104, bicarb 29, BUN 15, creatinine 1.06. Impression: 1.Right leg compartment syndrome. 2.Hypertension. 3.Hyperlipidemia. 4.Osteoarthritis, multiple sites. Plan: We will go ahead and continue current medications. The patient is currently on 2 antibiotics vancomycin and Zosyn. We will have pharmacy consult to manage vancomycin dosing. The patient is on DVT prophylaxis using Lovenox. We will continue that. We will also continue his current pain medica tion that he is on and I will see him tomorrow for followup. QUINTEN/MODL Voice ID: [id number] Report ID: [id number]
[2019-06-13] MEDS ORDERED: MIDAZOLAM HCL 2 MG/2 ML INJ ONE (11:51)
[2019-06-13] MEDS ORDERED: LIDOCAINE 1% MPF 5 ML VIAL ONE (11:51)
[2019-06-13] MEDS ORDERED: PROPOFOL 200 MG/20 ML VIAL IV ONE (11:51)
[2019-06-13] MEDS ORDERED: FENTANYL CITR 100 MCG/2 ML ONE ×2 (11:51→13:26)
[2019-06-13] MEDS ORDERED: CEFAZOLIN/SWI 1gm 1 GM/10 ML SYR ONE (12:26)
[2019-06-13] MEDS ORDERED: MEPERIDINE HCL 25 MG/0.5 ML ONE (14:05)
[2019-06-13] MEDS ORDERED: KETOROLAC 30 MG/ML INJ ONE (14:07)
[2019-06-13] MEDS ORDERED: ONDANSETRON 4 MG/2 ML VIAL ONE (14:16)
[2019-06-13] MEDS: VANCOMYCIN 1.25 GM in NA CHLORIDE 0.9% 250 ML IVPB SCH (14:25)
--- NOTE | 2019-06-13 14:32 | P.BOP ---
Preoperative diagnosis: RIGHT LOWER LEG COMPARTMENT SYNDROME Postoperative diagnosis: COMPARTMENT SYNDROME WITH DARK BLOOD IN POSTERIOR SUPERFICIAL COMPARTMENT Primary procedure: 2 INCISION 4 COMPARTMENT RIGHT LOWER LEG FASCIOTOMIES Secondary procedure: ASPIRATION RIGHT KNEE Stamp Collector: Brennen Mariee Estimated blood loss: 250 mL Specimen: NONE Complications: None Implants: NONE Fluids & blood products: INJECTED 20 mL 0.5%MARCAINE [place]IN Transferred to: Recovery Room Condition: Good
--- NOTE | 2019-06-13 14:38 | P.BOP ---
Preoperative diagnosis: RIGHT LOWER LEG S/P FASCIOTOMIES;EFFUSIONS L ELBOW & R KNEE Postoperative diagnosis: SAME Primary procedure: IRRIG.&DEBRID.&CLOSURE RIGHT LOWER LEG FASCIOTOMIES Secondary procedure: ASPIRATION RIGHT KNEE AND ASPIRATION L ELBOW Other procedure(s): APPLICATION LLE SHORT LEG POSTERIOR SPLINT Feeder Worker Power Unit Operator: Brennen Mariee Estimated blood loss: 10 mL Specimen: ASPIRATE SENT FOR ANALYSIS RIGHT KNEE AND LEFT ELBOW Findings: FASCIOTOMY INCISIONS CLEAN FOR CLOSURE; 25mL ASP L ELBOW;55mL ASP R KNEE Anesthesia: General Complications: None Implants: NONE Transferred to: Recovery Room Condition: Good
[2019-06-13] MEDS: MORPHINE 4 MG/ML SYR ONE ×2 (14:45→14:50)
[2019-06-13 15:01] LABS: Appearance TURBID (CLEAR); Body Fluid WBC 11346 /mm^3; Color of fluid Yellow (COLORLESS)
[2019-06-13] MEDS: HYDROMORPHONE HCL 2 MG/ML inj ONE ×3 (15:01→15:11)
[2019-06-13 15:02] LABS: Appearance VERY TURBID (CLEAR); Body Fluid Source SYNOVIAL; Body Fluid WBC 79582 /mm^3; Color of fluid Yellow (COLORLESS)
[2019-06-13 15:04] LABS: Body Fluid Source SYNOVIAL
[2019-06-13] MEDS: ATORVASTATIN 10 MG TAB PO SCH (16:36)
[2019-06-13] MEDS: HYDROCODONE/APAP 7.5/325 MG TAB PO PRN (23:31)
--- NOTE | 2019-06-13 23:39 | OP ---
Date of Procedure: 06/13/2019 Surgeon: Brennen Mariee MD Clerk Specialist: Brennen Mariee MD. Preoperative Diagnoses: Right lower leg, status post fasciotomy incisions; effusions, left elbow and right knee. Postoperative Diagnoses: Right lower leg, status post fasciotomy incisions; effusions, left elbow an d right knee. Primary Procedure: Irrigation and debridement with closure of right lower leg fasciotomy incisions. Secondary Procedure: Aspiration of left elbow and right knee. Indications: This 88-year-old male has had a severely swollen right lower extremity with compartment syndrome, threatened, treated with emergency surgery on 06/09/2019. The patient has returned to [facility] for irrigation, debridement, and possible closure of fasciotomy incisions. He has developed ove r the last 24 hours, intense swelling in the left elbow, and the initial aspiration from the right kn ee had developed, from broth only, a culture of Staphylococcus aureus MRSA. The initial aspiration o f that knee was innocuous, only 7 mL aspirated with very low white cell and neutrophil count. They g rew nothing until the inoculation of broth produced Staphylococcus aureus from broth only. The infec tion is dubious, contamination is frequent when the bacteria are grown from broth only. The repeat a spiration of the right knee is to evaluate the possibility of infection in the right knee. Technique: The patient was taken to the operating room and given a general anesthesia. A tourniquet was placed at the proximal thigh, but was not elevated during this procedure. The initial treatment after time-out when all pertinent facts were discussed, then it was decided to proceed with the proc edures as planned. The initial prep for the lateral aspect of the left elbow was with a ChloraPrep s tick. This prep was followed with alcohol swabs. An 18-gauge needle was inserted in the lateral asp ect of the left ulnohumeral joint. The fluid produced was quite purulent in appearance. The color w as yellow and it consisted of 25 mL. The aspirate was injected into Lavender and red-top tubes and c ulturette and sent for analysis. A Band-Aid was applied to the left elbow. Another ChloraPrep wand was used on the right knee along the medial parapatellar line. The fluid effusion within the right k nee was quite significantly enlarged from the prior aspiration in which very little fluid could be pa lpated in the suprapatellar pouch. The 18-gauge needle was inserted into the medial parapatellar anay nguyễn to aspirate 55 mL of yellow purulent aspirate. This also was portioned into tubes and culturet te, and sent for analysis. The area of that puncture was then covered with Tegaderm down to the infe rior pole of the patella, and the lower leg was then prepped and draped with Betadine scrub and Betad ine paint. Just prior to the prep, the tyler and vessel loop elastics were removed. These had bee n used to approximate skin edges and prevent retraction. The gauze packing was also removed from bot h medial and lateral incisions, then prepping was carried out. This was followed by irrigation using Betadine tinged normal saline, 1 L, irrigated in both incisions. Then, Simpulse lavage with 2 L of normal saline was used to additionally irrigate. The wounds were quite clean. There was no drainage . No necrotic material was found within the incisions. Then #1 and 2-0 Vicryl were used with indivi dual sutures to close the subcutaneous layers of the lateral incision. Skin tyler were used to nereyda se the skin. The medial incision was treated in the same way with #1 Vicryl and 2-0 Vicryl interrupt ed sutures for the closure of the subcutaneous layer, and the skin was closed with tyler. Aquacel bandages were placed medially and laterally to cover those incisions and seal them. Then, a soft rol l was applied to the foot, ankle, and lower leg. This layer of soft roll was split anteriorly to stanley id circumferential compression, and a 5 x 30 posterior splint from pre-padded fiberglass splinting wi amanda was fashioned into a posterior splint to maintain neutral position for the foot and ankle. Es timated blood loss was 10 mL. There were no complications. The patient was transferred to the [facility] room having tolerated this procedure well. BAIRON/YANDY Voice ID: [id number] Report ID: [id number]
[2019-06-14] MEDS: HYDROCODONE/APAP 7.5/325 MG TAB PO PRN ×3 (03:41→19:37)
[2019-06-14] MEDS: PANTOPRAZOLE 40MG TABLET PO SCH (06:22)
[2019-06-14] MEDS: PIPER/TAZO/NS 2.25gm 2.25 GM/50 ML BAG IV SCH (06:23)
[2019-06-14 06:30] LABS: Absolute Lymphocytes (CBC) 0.5 K/uL (0.7-4.9); Basophils % 0.4 % (0-1.3); Hematocrit 29.8 % (39.6-49.0); Lymphocytes % 3.3 % (15.3-44.8); MPV 8.3 fL (7.6-11.3); RBC Red Blood Cell Count 3.12 M/uL (4.33-5.43)
[2019-06-14 06:47] LABS: Magnesium 2.3 mg/dL (1.8-2.4); Potassium 3.7 mmol/L (3.5-5.1); Protein, Total 6.1 g/dL (6.4-8.2)
[2019-06-14] MEDS ORDERED: POTASSIUM CL SA 10 MEQ TAB PO ONE (09:00)
[2019-06-14] MEDS: AMLODIPINE 10 MG TAB PO SCH (09:14)
[2019-06-14] MEDS: METOPROLOL TAR 25 MG TAB PO SCH ×2 (09:14→22:20)
[2019-06-14] MEDS: VANCOMYCIN 1.25 GM in NA CHLORIDE 0.9% 250 ML IVPB SCH (14:32)
[2019-06-14] MEDS: ENOXAPARIN 40 MG/0.4 ML SQ SCH (16:29)
[2019-06-14] MEDS: ATORVASTATIN 10 MG TAB PO SCH (16:35)
[2019-06-14] MEDS ORDERED: PIPER/TAZO/NS 2.25gm 2.25 GM/50 ML BAG IV SCH (17:00)
[2019-06-14] MEDS: Ringers Lactate 1,000 ML IV SCH (18:01)
--- NOTE | 2019-06-14 18:51 | P.PN ---
Date of Service: 06/14/19 (POD#5) S: PATIENT IN BED, DAUGHTER PRESENT. DISCUSSED DETAILS OF SUCCESSFUL FASCIOTOMY CLOSURES AND ASPIRATION OF LEFT ELBOW AND RIGHT KNEE AT YESTERDAY'S SURGERY. PASSIVE MOVEMENT LEFT ELBOW 30 TO 90 DEGREES WELL TOLERATED TODAY. PALPATION OF RIGHT PATELLA ALLOWS MOVEMENT WITHOUT PAIN; KNEE EFFUSION HAS REAPPEARED OR PERSISTED AFTER ASPIRATION OF 55 mL VOLUME YESTERDAY. 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 GRAM STAINS HAVE ALL COME BACK WITH MANY WHITE CELLS, BUT NO ORGANISMS SEEN. O: PAIN RECORD 5,8,10,0,9,9,0,0/10 INTENSITY.PATIENT HAS USED TWO NORCO TABLETS TODAY, NO MORPHINE. AFEBRILE, VSS, HGB 10.2. GRAM STAINS NEGATIVE FOR INITIAL ASPIRATE RIGHT KNEE - NO WBC'S,NO ORGANISMS, NO GROWTH 48 HRS. 1+STAPH COAG+ REPORTED ON POD#3 ISOLATED FROM BROTH ONLY PATIENT NOW ON IV ZOSYN AND VANCOMYCIN. SENSITIVITIES INDICATE PO OPTIONS ARE BACTRIM, TETRACYCLINE, LEVOQUIN AND CIPRO. PATIENT DEMONSTRATES DORSIFLEXION OF TOES, DP PULSE INTACT. CAPILLARY FILLING BRISK. PATIENT IS ABLE TO LIFT LEG, BUT TRANSFERS ONLY WITH PT TODAY. PATIENT RESTARTED ON LOVENOX 40 MG SQ 24 HOURS AFTER SURGERY. A: CONTINUE TO DOUBT "BROTH ONLY" REPORT OF MRSA. REPEAT ASPIRATION RIGHT KNEE AND ASPIRATE LEFT ELBOW SHOWED NO ORGANISMS ON GRAM STAINS. CULTURES EXPECTED TO BE NEGATIVE BECAUSE OF IV ABX. P: APPRECIATE DR. HOLGUIN'S NOTE. WILL CONSULT FOR MEDICAL MGMT REGARDING PO ABX, ETC. RESUME MOBILIZATION TOLERATED TOMORROW.
[2019-06-14 20:20] LABS: Absolute Lymphocytes (CBC) 0.6 K/uL (0.7-4.9); Basophils % 0.4 % (0-1.3); Hematocrit 31.6 % (39.6-49.0); Lymphocytes % 3.9 % (15.3-44.8); MPV 8.3 fL (7.6-11.3); RBC Red Blood Cell Count 3.27 M/uL (4.33-5.43)
[2019-06-14 20:29] LABS: Potassium 3.9 mmol/L (3.5-5.1)
[2019-06-14] MEDS ORDERED: Levofloxacin500mg IV 500 MG/100 ML BAG IV ONE (22:00)
[2019-06-14] MEDS: NA CHLORIDE 0.9% 1,000 ML IV SCH (23:42)
[2019-06-14] MEDS: MORPHINE 2 MG/ML SYR IV PRN (23:42)
--- NOTE | 2019-06-15 00:34 | PN ---
Date of Progress Note: 06/14/2019 Subjective: The patient was seen this morning for followup. No new complaints or problems reported by patient. Lying in bed, not in any distress. His left elbow pain is little bit better today than yesterday as he reported. Objective: Vital Signs: Reviewed. HEENT: Examination unremarkable. Lungs: Clear to auscultation. Heart: Sounds normal. Abdomen: Soft. Bowel sounds normal. No guarding, rigidity, tenderness, or distention. Extremities: No leg edema. Impression: 1.Right leg compartment syndrome. 2.Hypertension. 3.Osteoarthritis, multiple sites. Plan: Patient's one culture from right knee aspirate from 06/09/2019 has grown MRSA. Rest of the cu ltures negative. I did talk to Dr. Mariee this evening and he is not convinced that the patient has any septic arthritis of right knee. He believes that this positive MRSA noted on this culture from t he right knee aspirate may not have been a true positive result and it might be a contaminant, but in any case, we cannot afford to stop his antibiotics at this point. We discussed about the possibilit y of changing antibiotics. We will discontinue patient's Zosyn and vancomycin and start the patient on Levaquin. We will repeat blood work this evening. This morning's lab results reviewed. Creatini ne had gone up to 2. We will follow this evening lab results. Dr. 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 I also talked to Dr. Mariee to see if necessary if we c an use any prednisone or not and he has given me his okay to use prednisone if necessary. I will make that decision tomorr ow. QUINTEN/MODL Voice ID: [id number] Report ID: [id number]
[2019-06-15] MEDS: HYDROCODONE/APAP 7.5/325 MG TAB PO PRN ×4 (01:54→20:09)
[2019-06-15 05:50] LABS: Absolute Lymphocytes (CBC) 0.8 K/uL (0.7-4.9); Basophils % 0.5 % (0-1.3); Hematocrit 30.1 % (39.6-49.0); Lymphocytes % 5.8 % (15.3-44.8); MPV 8.1 fL (7.6-11.3); RBC Red Blood Cell Count 3.16 M/uL (4.33-5.43)
[2019-06-15 06:08] LABS: Potassium 3.9 mmol/L (3.5-5.1)
[2019-06-15] MEDS: NA CHLORIDE 0.9% 1,000 ML IV SCH ×3 (08:39→23:45)
[2019-06-15] MEDS: METOPROLOL TAR 25 MG TAB PO SCH ×2 (08:40→20:09)
[2019-06-15] MEDS: AMLODIPINE 10 MG TAB PO SCH (08:40)
[2019-06-15] MEDS ORDERED: POTASSIUM 25 MEQ EFFERV TAB PO ONE (09:00)
[2019-06-15] MEDS: ENOXAPARIN 40 MG/0.4 ML SQ SCH (16:04)
[2019-06-15] MEDS: ATORVASTATIN 10 MG TAB PO SCH (16:04)
--- NOTE | 2019-06-15 18:17 | P.PN ---
Date of Service: 06/15/19 (POD 6 & 2) S: PATIENT ALL SMILES AND ZEROS THIS AFTERNOON, DAUGHTER PRESENT. THE PATIENT HAS DEFINITELY TURNED THE CORNER WITH SPONTANEOUS MOVEMENTS AND UPBEAT CONVERSATION. LEFT ELBOW SHOWS 15 TO 120 DEGREES AROM TOLERATED TODAY, NEARLY BACK TO NORMAL. PALPATION OF RIGHT PATELLA IS WITHOUT PAIN & KNEE EFFUSION IS WITHOUT WARMTH OR TENDERNESS AND WILL BE ALLOWED TO ABSORB SPONTANEOUSLY UNLESS SYMPTOMS CHANGE. 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 BOTH ELBOW AND KNEE SYMPTOMS SEEM TO BE IN RAPID REVERSAL. GRAM STAINS CAME "NO ORGANISMS SEEN". O: PAIN RECORD 0,0,0,5,0/10 INTENSITY. PATIENT IS USING THREE NORCO TABLETS PER DAY PER USUAL WITH HIS PAIN CLINIC SCHEDULE, NO MORPHINE USED. AFEBRILE, VSS, HGB 10.2,STABLE. IV ZOSYN AND VANCOMYCIN HAVE BEEN DISCONTINUED AND THE PATIENT IS NOW TAKING IV LEVAQUIN 500 MG EVERY 48 HOURS. PATIENT DEMONSTRATES DORSIFLEXION OF TOES, DP PULSE INTACT. CAPILLARY FILLING BRISK. PATIENT IS ABLE TO LIFT LEG. WITH PT TODAY THE PATIENT WENT 70 FEET AND 50 FEET WITH CRUTCHES IN THE A.M. EFFORT. AFTER GOING 10 FEET WITH A ROLLING WALKER THIS AFTERNOON, HE DEMANDED HIS CRUTCHES BACK AND WENT 75 FEET 2 WITH TOUCH DOWN WEIGHT BEARING FOR THE RIGHT LOWER EXTREMITY. HE WAS LEFT SITTING UP IN THE CHAIR AFTER EACH PT SESSION. PATIENT CONTINUES ON LOVENOX 40 MG SQ 24 HOURS. A: DISCUSSED "ISOLATED FROM BROTH ONLY" CONCERNS REGARDING MRSA WITH DIRECTOR OF LABORATORY SERVICES. FURTHER DISCUSSION PLANNED AFTER A LITTLE RESEARCH IS DONE. EXPECT WE MAY HAVE TO TREAT IF POSITIVE TO SATISFY ALL CONCERNED. P: CONTINUE MOBILIZATION TOLERATED.
--- NOTE | 2019-06-15 20:54 | PN ---
Date of Progress Note: 06/15/2019 Subjective: Patient was seen this morning for followup. No new complaints or problems reported by p kasey. He was sitting at bedside. Daughter was present with him at bedside. Denies any pain in hi s left elbow. Denies any pain in his right knee either today. Objective: Vital Signs: Reviewed. HEENT: Unremarkable. Lungs: Clear to auscultation. Heart: Sounds normal. Abdomen: Soft. Bowel sounds normal. No guarding, rigidity, tenderness, or distention. Extremities: Right leg has dressing present. Left leg, no leg edema. Labs: Reviewed. Impression: 1.Acute kidney injury. 2.Hypertension. 3.Compartment syndrome, right leg, status post surgery. Plan: We will continue current medications. Continue current antibiotic, which is Levaquin. IV flu id will be continued per order, which is normal saline. Blood work results reviewed. His creatinine has gone up this morning compared to yesterday, but increase between yesterday evening and this morn ing is minimum compared to increase in creatinine between day before yesterday and yesterday. Detail s were discussed with the patient and patient's daughter. Zosyn and vancomycin were discontinued yes terday because of acute kidney injury. I will see him tomorrow for followup if patient's condition continues to improve. Plan is to discharg e to go home hopefully by Wednesday. QUINTEN/MODL Voice ID: [id number] Report ID: [id number]
[2019-06-16] MEDS: HYDROCODONE/APAP 7.5/325 MG TAB PO PRN ×5 (00:01→20:51)
[2019-06-16] MEDS: NA CHLORIDE 0.9% 1,000 ML IV SCH ×4 (01:27→15:45)
[2019-06-16 06:13] LABS: Absolute Lymphocytes (CBC) 1.3 K/uL (0.7-4.9); Basophils % 0.6 % (0-1.3); Hematocrit 30.7 % (39.6-49.0); MPV 8.3 fL (7.6-11.3); RBC Red Blood Cell Count 3.23 M/uL (4.33-5.43)
[2019-06-16 06:15] LABS: Potassium 3.4 mmol/L (3.5-5.1)
[2019-06-16] MEDS: AMLODIPINE 10 MG TAB PO SCH (08:29)
[2019-06-16] MEDS: METOPROLOL TAR 25 MG TAB PO SCH ×2 (08:31→20:51)
[2019-06-16] MEDS ORDERED: POTASSIUM 25 MEQ EFFERV TAB PO ONE (09:00)
[2019-06-16] MEDS: ENOXAPARIN 40 MG/0.4 ML SQ SCH (18:02)
[2019-06-16] MEDS: ATORVASTATIN 10 MG TAB PO SCH (18:02)
[2019-06-16] MEDS: Levofloxacin500mg IV 500 MG/100 ML BAG IV SCH (22:30)
--- NOTE | 2019-06-16 22:33 | PN ---
Date of Progress Note: 06/16/2019 Subjective: Patient was seen this morning for followup. No new complaints or problems reported by h im. He was sitting at bedside in the bed and his daughter was present with him. Denies any complain ts. Denies any knee pain or elbow pain. Objective: Vital Signs: Reviewed. HEENT: Unremarkable. Lungs: Clear to auscultation. Heart: Sounds normal. Abdomen: Soft. Bowel sounds normal. No guarding, rigidity, tenderness, or distention. Extremities: No leg edema. Laboratory Data: White count 12.5, hemoglobin 10.5, platelets . Sodium 143, potassium 3.4 , chloride 109, bicarb 25, BUN 47, creatinine 2.82, glucose 134. Impression: 1.Acute kidney injury. 2.Hypokalemia. 3.Hypertension. 4.Right leg compartment syndrome. 5.Anemia, unspecified. Plan: We will continue current antibiotic, which is Levaquin. Patient is responding well to it. Co ntinue IV fluid. This morning, creatinine is 2.82. Yesterday, it was 2.87. So we feel like that no w his renal function should continue to improve on a day-to-day basis. We will repeat blood work yanci orr morning. I did discuss with Dr. Mariee and our plan is to keep him in the hospital until . Hopefully by Wednesday, he should be ready for discharge with oral antibiotic Levaquin. Dr. Mariee wants him to receive antibiotic Levaquin for 2 weeks. Probably within few days to week after complet ion of antibiotic, he is going to plan to perform arthrocentesis of right knee and we will repeat cul ture. Dr. Mariee believes that right knee culture that is growing MRSA is likely contaminant and not representing true infection indicating septic arthritis. Clinically, patient is responding very wel l to current treatment and will continue physical therapy per order with weight bearing status per or fly from Dr. Mariee. QUINTEN/MODL Voice ID: [id number] Report ID: [id number]
[2019-06-17] MEDS: HYDROCODONE/APAP 7.5/325 MG TAB PO PRN ×6 (01:07→21:24)
[2019-06-17] MEDS: NA CHLORIDE 0.9% 1,000 ML IV SCH ×3 (01:10→16:50)
[2019-06-17] MEDS: METOPROLOL TAR 25 MG TAB PO SCH ×2 (09:02→21:24)
[2019-06-17] MEDS: AMLODIPINE 10 MG TAB PO SCH (09:02)
[2019-06-17 09:59] LABS: Absolute Lymphocytes (CBC) 0.8 K/uL (0.7-4.9); Basophils % 0.9 % (0-1.3); Hematocrit 30.1 % (39.6-49.0); Lymphocytes % 7.9 % (15.3-44.8); MPV 7.7 fL (7.6-11.3)
[2019-06-17 10:12] LABS: Magnesium 2.1 mg/dL (1.8-2.4); Potassium 3.6 mmol/L (3.5-5.1)
[2019-06-17] MEDS ORDERED: POTASSIUM 25 MEQ EFFERV TAB PO ONE (10:42)
--- NOTE | 2019-06-17 15:01 | PN ---
Date of Progress Note: 06/17/2019 Subjective: Patient was seen this morning for followup. No new complaints or problems reported by brianne parks. He was lying in bed, not in distress. Objective: Vital Signs: Reviewed. HEENT: Unremarkable. Lungs: Clear to auscultation. Heart: Sounds normal. Abdomen: Soft. Bowel sounds normal. No guarding, rigidity, tenderness, or distention. Extremities: No leg edema. Laboratory Data: White count 10.7, hemoglobin 10.7, platelets 471. Sodium 145, potassium 3.6, chlor malaika 110, bicarb 25, BUN 36, creatinine 2.35, glucose 160. Impression: 1.Right leg compartment syndrome. 2.Hypertension. 3.Acute kidney injury. Plan: The patient's renal function is improving. We will continue IV fluid. Continue current antib iotic, which is Levaquin and physical therapy to continue to work with the patient. We will continue current DVT prophylaxis and I will see him tomorrow for followup. QUINTEN/MODL Voice ID: [id number] Report ID: [id number]
[2019-06-17] MEDS: ATORVASTATIN 10 MG TAB PO SCH (16:49)
[2019-06-17] MEDS: ENOXAPARIN 30 MG/0.3 ML SQ SCH (16:49)
[2019-06-18] MEDS: HYDROCODONE/APAP 7.5/325 MG TAB PO PRN ×5 (01:34→22:34)
[2019-06-18] MEDS: NA CHLORIDE 0.9% 1,000 ML IV SCH ×2 (01:35→07:45)
[2019-06-18 06:17] LABS: Absolute Lymphocytes (CBC) 1.2 K/uL (0.7-4.9); Basophils % 0.9 % (0-1.3); Hematocrit 31.2 % (39.6-49.0); Lymphocytes % 11.2 % (15.3-44.8); MPV 7.7 fL (7.6-11.3)
[2019-06-18 06:24] LABS: Magnesium 1.8 mg/dL (1.8-2.4); Potassium 3.6 mmol/L (3.5-5.1)
[2019-06-18] MEDS: METOPROLOL TAR 25 MG TAB PO SCH ×2 (08:19→21:23)
[2019-06-18] MEDS: AMLODIPINE 10 MG TAB PO SCH (08:19)
[2019-06-18] MEDS ORDERED: GLUCAGON 1 MG/VIAL IM PRN (09:05)
[2019-06-18] MEDS ORDERED: D50W 25 GM/50 ML SYRINGE IV PRN (09:05)
[2019-06-18] MEDS: D5 0.45 NS 1,000 ML IV SCH ×2 (10:22→22:37)
--- NOTE | 2019-06-18 11:26 | P.PN ---
Date of Service: 06/16/19 S: PATIENT WITHOUT C/O PAIN THIS AFTERNOON, DAUGHTER PRESENT. THE PATIENT DOING WELL. LEFT ELBOW CONTINUES TO SHOW PROGRESS IN REGAINING AROM, 15 TO 120 DEGREES AROM. PALPATION OF RIGHT PATELLA IS WITHOUT PAIN & KNEE EFFUSION IS WITHOUT WARMTH OR TENDERNESS. RAPID RECOVERY FITS DX OF PSEUDOGOUT FOR BOTH ELBOW AND KNEE SYMPTOMS AFTER ASPIRATION ALONE WITHOUT ANTI-INFLAMMATORY RX. O: PAIN RECORD 5,2,5,5,0/10 INTENSITY. AFEBRILE, VSS, HGB 10.5 SLIGHTLY UP. PATIENT CONTINUES WITH IV LEVAQUIN 500 MG EVERY 48 HOURS. PATIENT DEMONSTRATES DORSIFLEXION OF TOES, DP PULSE INTACT. CAPILLARY FILLING BRISK. PATIENT IS ABLE TO LIFT LEG. WITH PT TODAY THE PATIENT WENT 200 FEET WITH CRUTCHES IN THE P.M. HE WAS LEFT SITTING UP IN THE CHAIR. PATIENT CONTINUES ON LOVENOX 40 MG SQ 24 HOURS. A: LAB STANDS BY "ISOLATED FROM [facility] ONLY" MRSA REPORT DESPITE ABSENCE OF A PALPABLE EFFUSION, CLEAR PINK ASPIRATE OF ONLY 7mL WITH <700 WBCs AND 45% NEUTROPHILS. DISCUSSED CARE AND WEEKEND COVERAGE WITH DR. HOLGUIN. WILL CONTINUE TO TREAT IF INITIAL CULTURE POSITIVE. P: CONTINUE MOBILIZATION TOLERATED.
[2019-06-18] MEDS: INSULIN -REGULAR HUMAN 50 UNIT/0.5 ML ML SQ SCH ×3 (11:30→21:00)
--- NOTE | 2019-06-18 11:56 | P.PN ---
Date of Service: 06/18/19 S: PATIENT AGAIN WITHOUT C/O PAIN THIS MORNING, BUT HE VOICES CONCERN ABOUT POSSIBLE DISCHARGE ON WEDNESDAY. DAUGHTER PRESENT AND FOLLOWED ME OUT OF ROOM TO DESCRIBE PATIENT'S C/O "BODY ACHES". THE PATIENT HAS BEEN TAKING NORCO 7.5 "BY THE CLOCK" FOR THE LAST 36 HOURS. LEFT ELBOW CONTINUES TO SHOW PROGRESS IN REGAINING AROM, 10 TO 135 DEGREES TODAY. PALPATION OF RIGHT PATELLA CONTINUES WITHOUT PAIN & KNEE EFFUSION IS DECREASING WITHOUT WARMTH OR TENDERNESS. RIGHT KNEE PROM 3 TO 90 DEGREES, AAROM 0 TO 105 DEGREES USING HAMSTRING MUSCLES WITHOUT DISCOMFORT. RAPID RECOVERY OF ROM FITS DX OF PSEUDOGOUT FOR BOTH ELBOW AND KNEE SYMPTOMS WITH ASPIRATION ALONE WITHOUT ANTI-INFLAMMATORY RX. O: PAIN RECORD 0,4,5,3,0,7,0,5/10 INTENSITY. AFEBRILE, VSS, HGB 10.5 SLIGHTLY DOWN FROM 10.7. PATIENT CONTINUES WITH IV LEVAQUIN 500 MG EVERY 48 HOURS. PATIENT DEMONSTRATES DORSIFLEXION OF TOES, DP PULSE INTACT. CAPILLARY FILLING BRISK. BANDAGES CHANGED TODAY. BOTH FASCIOTOMY INCISIONS HEALING WITH NO SIGNIFICANT DRAINAGE SINCE CLOSURE. TWO AQUACEL BANDAGES REPLACED AFTER SWABBING WITH CHLORHEXIDINE SWAB STICKS FOLLOWED BY ALCOHOL SWABS. PATIENT WAS ABLE TO LIFT LEG TO FACILITATE BANDAGE CHANGE. NO PT YESTERDAY FOR 2ND FLOOR. THE PATIENT NEEDS CONTINUED MOBILIZATION TO AVOID INVOLUTION. HE CONTINUES ON LOVENOX 40 MG SQ 24 HOURS. A: OPTIMAL RECOVERY SINCE FASCIOTOMIES CONTINUES. PATIENT WAS ON NORCO 7.5 TID BEFORE HOSPITALIZATION FOR CHRONIC C/O ARTHRITIS PAIN. P: PATIENT NEEDS CONTINUED MOBILIZATION TOLERATED, NOTIFIED PT TO SEE PATIENT TODAY IF POSSIBLE. HOME HEALTH LIKELY NECESSARY TO AVOID LANGUISHED LOSS OF MOMENTUM. WILL TRY REDUCED FREQUENCY OF NORCO 7.5 TABLET Q 6H.
[2019-06-18] MEDS ORDERED: MAGNESIUM SULFATE 1 gm IVPB 1 GM/100 ML BAG IV ONE (12:15)
[2019-06-18] MEDS ORDERED: POTASSIUM CL SA 10 MEQ TAB PO ONE (12:15)
--- NOTE | 2019-06-18 12:27 | PN ---
Date of Progress Note: 06/18/2019 Subjective: Patient was seen this morning for followup. No new complaints or problems reported by brianne parks. He was lying in bed. Daughter was present with him at bedside. Denies any complaint. Objective: Vital Signs: Reviewed. HEENT: Unremarkable. Lungs: Clear to auscultation. Heart: Sounds normal. Abdomen: Soft. Bowel sounds normal. No guarding, rigidity, tenderness, or distention. Extremities: No leg edema. Laboratory Data: White count 10.6, hemoglobin 10.5, platelets 516. Sodium 147, potassium 3.6, chlor malaika 113, bicarb 28, BUN 29, creatinine 2.14, glucose 139. Hemoglobin A1c pending. Magnesium 1.8. Impression: 1.Right leg compartment syndrome. 2.Acute kidney injury. 3.Hypertension. Plan: We will continue current medication. Change IV fluid per order. We will continue current ant ibiotics. Repeat blood work tomorrow morning, and I will see him tomorrow for followup. Upon discha rge, patient is planning to go home. His daughter who lives out of town will be staying with him for at least a week or so and she will be assisting him. I have advised the patient and family that he should have somebody at home from family to start with and as his condition improves, then he can live independently. We will also have to make arrangements for home health and home physical therapy. QUINTEN/MODL Voice ID: [id number] Report ID: [id number]
[2019-06-18] MEDS: ENOXAPARIN 30 MG/0.3 ML SQ SCH (16:07)
[2019-06-18] MEDS: ATORVASTATIN 10 MG TAB PO SCH (16:07)
[2019-06-18] MEDS: Levofloxacin500mg IV 500 MG/100 ML BAG IV SCH (21:26)
[2019-06-19] MEDS: HYDROCODONE/APAP 7.5/325 MG TAB PO PRN ×4 (04:31→20:28)
[2019-06-19 05:48] LABS: Absolute Lymphocytes (CBC) 1.1 K/uL (0.7-4.9); Basophils % 0.6 % (0-1.3); Hematocrit 29.5 % (39.6-49.0); Lymphocytes % 7.7 % (15.3-44.8); MPV 7.8 fL (7.6-11.3); RBC Red Blood Cell Count 3.14 M/uL (4.33-5.43)
[2019-06-19 05:52] LABS: Magnesium 1.9 mg/dL (1.8-2.4); Potassium 3.4 mmol/L (3.5-5.1)
[2019-06-19] MEDS: D5 0.45 NS 1,000 ML IV SCH ×4 (06:00→20:30)
[2019-06-19] MEDS: INSULIN -REGULAR HUMAN 50 UNIT/0.5 ML ML SQ SCH ×4 (07:30→20:30)
[2019-06-19] MEDS: METOPROLOL TAR 25 MG TAB PO SCH ×2 (08:00→20:29)
[2019-06-19] MEDS: AMLODIPINE 10 MG TAB PO SCH (08:02)
[2019-06-19 08:07] LABS: Blood Morphology Comment NOT SEEN (NOT SEEN); Platelet Estimate ADEQ; Urine White Blood Cell Casts OK
[2019-06-19] MEDS ORDERED: POTASSIUM CL SA 10 MEQ TAB PO ONE (09:00)
--- NOTE | 2019-06-19 09:46 | RAD REPORT ---
EXAM DESCRIPTION: RAD - Chest Pa And Lat (2 Views) - 06/19/2019 8:57 am CLINICAL HISTORY: Leukocytosis COMPARISON: June 12 TECHNIQUE: PA and lateral views of the chest were obtained. FINDINGS: The lungs are slightly underinflated. Stranding in the left lung base is most likely minim al atelectasis. Acute left lung field finding is doubtful. Trachea remains midline. Right hemidiaphra gm is elevated. There is a small right pleural effusion along with infiltrate and/ or atelectasis at the right base. Right lung base opacification has progressed from the June 12 imaging. Mid and upper right lung field is clear. Heart size is normal and central vasculature is within normal limits. No pleural effusion or pneu mothorax seen. No acute bony finding noted. No aortic abnormality. IMPRESSION: Small right pleural effusion progressive from June 12 imaging. Infiltrate and/ or atelectasis in the right base progressive from June 12 imaging
[2019-06-19 11:43] LABS: Urine Appearance CLEAR; Urine Bilirubin NEGATIVE (NEG); Urine Blood NEGATIVE (NEG); Urine Color YELLOW; Urine Glucose NEGATIVE (NEG); Urine Protein NEGATIVE (NEG); Urine Urobilinogen 0.2 mg/dL (0.2-1.0); Urine pH 6.5 (5.0-7.0)
[2019-06-19 11:51] LABS: Urine Bacteria NONE SEEN /HPF (NONE SEEN); Urine Culture Reflex Order NOT NEEDED; Urine RBC <5 /HPF (NONE SEEN)
[2019-06-19] MEDS ORDERED: LIDOCAINE 1% MPF 5 ML VIAL IM ONE (12:13)
--- NOTE | 2019-06-19 14:12 | RAD REPORT ---
EXAM DESCRIPTION: CT - Thorax Wo Con - 06/19/2019 1:36 pm CLINICAL HISTORY: Pneumonia, abnormal chest film COMPARISON: Two view chest June 19, CT chest October 2014 TECHNIQUE: Axial 5 mm thick images of the chest were obtained without IV contrast. All CT scans are performed using dose optimization technique as appropriate and may include automated exposure control or mA/KV adjustment according to patient size. FINDINGS: No mass or infiltrate in the lung parenchyma. Small left pleural effusion is present layer ing along the posterior chest wall. Small to moderate right pleural effusion is present. Right lower lobe parenchymal opacification is present. This is primarily an atelectasis pattern. A component of p neumonia is possible. There is no large area of consolidation. No mucous plugging or endobronchial le sunitha identifiable. The bilateral upper lobes, left lower lobe and right middle lobe were clear of any mass, infiltrate or suspicious nodularity. No pleural based mass. No pneumothorax. No abnormal mediastinal or hilar masses or lymphadenopathy seen. A few small reactive type mediastina l and hilar lymph nodes are seen. No dilation of the aorta or displacement of the wall calcifications . Pulmonary arteries are not fully assessed in the absence of contrast. No abnormal pericardial thick ening or effusion. No chest wall mass or abnormal axillary lymphadenopathy. IMPRESSION: Small a moderate right pleural effusion with right lower lobe opacification primarily re presenting atelectasis. There is no large consolidation. Patchy pneumonia within the atelectatic right lower lobe would be po ssible. Lung garcia are otherwise unremarkable and patient has a small layering pleural effusion on the left.
[2019-06-19 17:06] LABS: Body Fluid Source SYNOVIAL; Color of fluid Yellow (COLORLESS)
[2019-06-19 17:07] LABS: Appearance SLT. TURBID (CLEAR); Body Fluid WBC 2639 /mm^3
[2019-06-19] MEDS: ATORVASTATIN 10 MG TAB PO SCH (17:19)
[2019-06-19] MEDS: ENOXAPARIN 30 MG/0.3 ML SQ SCH (17:19)
--- NOTE | 2019-06-19 18:37 | PN ---
Date of Progress Note: 06/19/2019 Subjective: Patient was seen this morning for followup. He is having pain in different areas of dif ferent joints that talk about elbows, knees, etc. His daughter was present with him at bedside. Objective: Vital Signs: Reviewed. HEENT: Unremarkable. Lungs: Clear to auscultation. No rhonchi or rales. Heart: Sounds normal. Abdomen: Soft. Bowel sounds normal. No guarding, rigidity, tenderness, or distention. Extremities: No leg edema. Right knee has mild swelling. Skin: Right upper posterior buttock region has 3 to 4 small area of skin excoriation with surroundin g soft tissue induration and skin is pink in color. The patient had tendency to sleep on that side d uring this hospitalization. Yesterday, nursing staff applied DuoDerm patch and we will continue to u se that and I have advised the patient to avoid any pressure on that side. He was advised to keep ch anging position every 2 hours, but not to put any pressure on this affected site. Laboratory Data: White count 13.7, hemoglobin 10, platelets 496. Sodium 144, potassium 3.4, chlorid e 110, bicarb 27, BUN 24, creatinine 1.94, glucose 170. Impression: 1.Right leg compartment syndrome. 2.Pseudogout. 3.Acute kidney injury. 4.Hypertension. Plan: The patient's acute kidney injury problem is improving. Creatinine is 1.94 today. We will co ntinue IV fluid and continue current antibiotic Levaquin. I did call Dr. Mariee this morning to talk to him. Details were discussed with him and he was made aware of increase in WBC count. Clinically , there is no other new area or concern about infection. I have ordered a chest x-ray, urinalysis, a nd results reviewed. Chest x-ray shows some small right-sided pleural effusion. Cannot rule out any underlying atelectasis versus pneumonia, so I will order a CAT scan of the chest without contrast. Urinalysis does not show any signs of infection. I did talk to Dr. Mariee about him performing arthr ocentesis on the right knee, which he will perform today and after the procedure, he will let me know . 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 Details and plan of treatment discussed with the patient's daughter who was at bedside and e patient. QUINTEN/MODL Voice ID: [id number] Report ID: [id number]
--- NOTE | 2019-06-19 19:37 | P.PN ---
Date of Service: 06/19/19 S: PATIENT NAPPING, BUT AGREEABLE TO ASPIRATION OF THE RIGHT KNEE. DAUGHTER PRESENT,QUESTIONS ANSWERED. LEFT ELBOW CONTINUES TO SHOW SATISFACTORY AROM, 5 TO 135 DEGREES. PALPATION OF RIGHT PATELLA IS NONTENDER & 2+ RIGHT KNEE EFFUSION IS WITHOUT WARMTH OR TENDERNESS. RIGHT KNEE PROM 3 TO 100 DEGREES. O: PAIN RECORD 4,0,5,10,5,5,7/10 INTENSITY. AFEBRILE, VSS, HGB 10.0 SLIGHTLY DOWN FROM 10.6. WBC COUNT 13.7 IS UP FROM 10.6,NEUTROPHILS ARE UP FROM 71% TO 88 %. THE RIGHT KNEE WAS PREPPED ALONG THE MEDIAL PARAPATELLAR LINE WITH BETADINE SOLUTION SWAB FOLLOWED BY CHLORHEXIDINE SWAB STICK AND ALCOHOL SWABS. AN 18- GAUGE NEEDLE WAS USED TO ASPIRATE 14mL OF A PINKISH FLUID WITH MILD TURBIDITY. EARLY REPORTS FROM THE LAB SHOW A YELLOW, SLIGHTLY TURBID FLUID, WITH FLUID WBCs 2639 WITH 88% NEUTROPHILS, FLUID RBCs WERE 7015, NO CRYSTALS WERE SEEN, GRAM STAINS ARE PENDING. PATIENT WAS ABLE TO LIFT THE RIGHT LEG TO POSITION IT ON A PILLOW. PT YESTERDAY WENT 150', TODAY PATIENT WENT 200' WITH CRUTCHES. CHEST X-RAY COMPARED TO THAT ON JUNE 12 SHOWS A RIGHT LOWER LOBE OPACIFICATION HAS PROGRESSED, AND THE LEFT LOWER BASE SHOWS STRANDING POSSIBLY MINIMAL ATELECTASIS. DUODERM WAS USED FOR THE RIGHT SIDE OF THE SACRUM. A: PATIENT'S UPTICK IN WBC COUNT RAISED CONCERN REGARDING PROGRESS OF RIGHT KNEE, BUT THE PATIENT CONTINUES WITH NO TENDERNESS TO PALPATION AND DEMONSTRATES A GOOD RANGE OF MOTION. HE ALSO MANAGES NEARLY 200 FEET OF TOUCHDOWN WEIGHTBEARING ON THE RIGHT LOWER EXTREMITY WITH EACH PHYSICAL THERAPY EFFORT. P: CONTINUE MOBILIZATION TOLERATED. GRAM STAINS PENDING.
[2019-06-20] MEDS: D5 0.45 NS 1,000 ML IV SCH ×5 (02:00→22:00)
[2019-06-20] MEDS: HYDROCODONE/APAP 7.5/325 MG TAB PO PRN ×4 (02:18→20:10)
[2019-06-20 05:33] LABS: Absolute Lymphocytes (CBC) 1.3 K/uL (0.7-4.9); Basophils % 0.8 % (0-1.3); Lymphocytes % 10.5 % (15.3-44.8); MPV 7.8 fL (7.6-11.3)
[2019-06-20 05:54] LABS: Albumin 2.4 g/dL (3.4-5.0); Bilirubin Total 0.5 mg/dL (0.2-1.0); Potassium 3.5 mmol/L (3.5-5.1)
[2019-06-20] MEDS: INSULIN -REGULAR HUMAN 50 UNIT/0.5 ML ML SQ SCH ×4 (07:30→21:00)
[2019-06-20] MEDS: AMLODIPINE 10 MG TAB PO SCH (08:43)
[2019-06-20] MEDS: METOPROLOL TAR 25 MG TAB PO SCH ×2 (08:46→20:11)
[2019-06-20] MEDS ORDERED: POTASSIUM CL SA 10 MEQ TAB PO ONE (09:00)
[2019-06-20 09:59] LABS: CKMB Creatine Kinase MB 1.1 ng/mL (0.3-3.6); Uric Acid 5.5 mg/dL (3.5-7.2)
--- NOTE | 2019-06-20 14:01 | RAD REPORT ---
EXAM DESCRIPTION: US - Renal Ultrasound-Complete - 06/20/2019 1:36 pm CLINICAL HISTORY: acute kidney injury Flank pain COMPARISON: None FINDINGS: Bilateral renal sonography and urinary bladder sonography with PVR measurement. Mildly echogenic kidneys noted. The right kidney measures 10.5 x 5.0 x 4.5 cm. No hydronephrosis. 4 cm cyst is present, benign in anay earance. The left kidney measures 10.2 x 6.2 x 5.5 cm. No hydronephrosis, focal mass or perinephric fluid. Prevoid bladder volume is 300 mL. No bladder mass or ureterocele seen. Postvoid bladder volume is 5 m L. IMPRESSION: Mildly echogenic kidneys suggests underlying medical renal disease. No significant PVR.
--- NOTE | 2019-06-20 14:03 | P.PN ---
Date of Service: 06/20/19 S: PATIENT SITTING UP ON BEDSIDE, READY TO START AM PT EFFORT. LEFT ELBOW CONTINUES TO SHOW SATISFACTORY AROM, 5 TO 135 DEGREES. PALPATION OF RIGHT PATELLA IS NONTENDER TO PALPATION & 1+ RIGHT KNEE EFFUSION IS WITHOUT WARMTH OR TENDERNESS ONE DAY AFTER 3RD ASPIRATION. RIGHT KNEE AROM 20 TO 95 DEGREES. O: PAIN RECORD 7,0,0,8,0,0,5/10 INTENSITY. AFEBRILE, VSS, HGB 9.8 SLIGHTLY DOWN FROM 10.0. WBC COUNT 12.0 DOWN FROM 13.7,NEUTROPHILS ARE DOWN FROM 88% TO 72%. REPORTS FROM THE LAB SHOW A YELLOW, SLIGHTLY TURBID FLUID, WITH FLUID WBCs 2639 WITH 88% NEUTROPHILS, FLUID RBCs WERE 7015, NO CRYSTALS WERE SEEN, GRAM STAIN: WBC/OIF 20 TO 50; NO ORGANISMS; NO GROWTH. SITTING ON BEDSIDE PATIENT CAN LIFT EXTEND AND BEND RIGHT KNEE. PT YESTERDAY WENT 200' X 2, PATIENT WENT 250' WITH CRUTCHES THIS MORNING. A: PATIENT'S WBC COUNT MILDLY DECREASED TODAY, AND THE PATIENT CONTINUES WITH NO TENDERNESS TO PALPATION AND DEMONSTRATES A GOOD RANGE OF MOTION FOR THE RIGHT KNEE. WOULD AGREE TO CORTICOSTEROID USE TO REDUCE LIKELIHOOD OF ADDITIONAL PSEUDOGOUT ATTACKS. P: CONTINUE MOBILIZATION TOLERATED. HOME HEALTH ARRANGEMENTS BEING MADE. DISCHARGE POSSIBLY TOMORROW. F/U MY OFFICE TO REMOVE SU RLE WEDNESDAY OR WEDNESDAY.
--- NOTE | 2019-06-20 14:17 | RAD REPORT ---
EXAM DESCRIPTION: US - Urinary Bladder - 06/20/2019 1:44 pm CLINICAL HISTORY: Acute kidney injury Flank pain COMPARISON: None FINDINGS: Bilateral renal sonography and urinary bladder sonography with PVR measurement. Mildly echogenic kidneys noted. The right kidney measures 10.5 x 5.0 x 4.5 cm . No hydronephrosis. 4 cm cyst is present, benign in ap pearance. The left kidney measures 10.2 x 6.2 x 5.5 cm . No hydronephrosis, focal mass or perinephric fluid. Prevoid bladder volume is 300 mL. No bladder mass or ureterocele seen. Postvoid bladder volume is 5 m L. IMPRESSION: Mildly echogenic kidneys suggests underlying medical renal disease. No significant PVR.
[2019-06-20 15:03] LABS: Urine Protein/Creatinine Ratio 0.34 ratio (<0.15)
[2019-06-20] MEDS: ENOXAPARIN 30 MG/0.3 ML SQ SCH (17:04)
[2019-06-20] MEDS: ATORVASTATIN 10 MG TAB PO SCH (17:04)
[2019-06-20] MEDS: Levofloxacin500mg IV 500 MG/100 ML BAG IV SCH (22:32)
--- NOTE | 2019-06-21 00:11 | PN ---
Date of Progress Note: 06/20/2019 Subjective: Patient was seen this morning for followup. No new complaints or problems reported by p westleyалександр. His daughter was present with him at bedside. Objective: Vital Signs: Reviewed. HEENT: Unremarkable. Lungs: Clear to auscultation. Heart: Sounds normal. Abdomen: Soft. Bowel sounds normal. No guarding, rigidity, tenderness, or distention. Extremities: The right knee has mild swelling. Laboratory Data: White count 12, hemoglobin 9.8, platelets 484. Sodium 145, potassium 3.5, chloride 109, bicarb 30, BUN 21, creatinine 2.11, glucose 175. Impression: 1.Acute kidney injury. 2.Right leg compartment syndrome. 3.Hypertension. 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 5.Anemia. Plan: Patient's renal function was improving up until yesterday. Today, creatinine has gone up. We will continue IV fluid. Continue current antibiotic, Levaquin. We will get an ultrasound done per order and request Nephrology consultation. Details were discussed with Dr. Mariee and he has given m e okay for us to use prednisone for his arthritis problem and we will start that tomorrow. Details were discussed with the patient and h is daughter this morning. QUINTEN/MODL Voice ID: [id number] Report ID: [id number]
[2019-06-21] MEDS: HYDROCODONE/APAP 7.5/325 MG TAB PO PRN ×2 (02:26→08:30)
[2019-06-21] MEDS: D5 0.45 NS 1,000 ML IV SCH (05:42)
[2019-06-21 05:43] LABS: Absolute Lymphocytes (CBC) 1.5 K/uL (0.7-4.9); Basophils % 0.8 % (0-1.3); Hematocrit 29.3 % (39.6-49.0); Lymphocytes % 11.7 % (15.3-44.8); MPV 8.2 fL (7.6-11.3)
[2019-06-21 05:46] LABS: Magnesium 1.5 mg/dL (1.8-2.4); Potassium 3.3 mmol/L (3.5-5.1)
[2019-06-21] MEDS ORDERED: POTASSIUM CL SA 10 MEQ TAB PO ONE (07:00)
[2019-06-21] MEDS: INSULIN -REGULAR HUMAN 50 UNIT/0.5 ML ML SQ SCH (07:30)
[2019-06-21 08:00] VITALS: O2SAT 97
[2019-06-21] MEDS: AMLODIPINE 10 MG TAB PO SCH (08:30)
[2019-06-21] MEDS: METOPROLOL TAR 25 MG TAB PO SCH (08:31)
[2019-06-21 08:32] VITALS: BP 146/73
[2019-06-21 08:44] VITALS: TEMP 98.4
[2019-06-21] MEDS ORDERED: Magnesium Sulfate 2gm IVPB 2 G/50 ML BAG IV ONE (09:00)
[2019-06-21] MEDS ORDERED: predniSONE 20 MG TAB PO SCH (09:00)
--- NOTE | 2019-06-22 06:12 | DS ---
Date of Discharge: 06/21/2019 Final Diagnoses: 1.Right leg compartment syndrome. 2.Pseudogout. 3.Osteoarthritis, multiple sites. 4.Hypertension. 5.Hyperlipidemia. 6.Gastroesophageal reflux disease. 7.Anemia. 8.Acute kidney injury. Hospital Course: This is an 88-year-old very pleasant male patient who was admitted to the hospital under care of Dr. Mariee with right leg compartment syndrome. Dr. Mariee consulted Hospitalist for m edical management while I was out of town and I took over patient's care as of 06/13/2019. Patient h ad surgery for this right leg compartment syndrome by Dr. Mariee. Postoperatively, he did fine. Odette fountain's knee aspiration was done by Dr. Mariee and culture came back positive for MRSA. Patient had a spiration done of left elbow and repeat aspiration of the right knee and all those cultures were nega tive. Dr. Mariee believes that this was actually not a true positive culture and he thinks it was co ntamination instead of true positive culture, and as a result, he really does not believe that patijesica t has septic arthritis. In any case, patient was on vancomycin and Zosyn as empiric antibiotics. La week, patient went into acute kidney failure with highest creatinine of 2.87. We discontinued his vancomycin and Zosyn, discontinued his pantoprazole. Because of his acute kidney injury problem, IV fluid was started and his renal function started improving. Lowest renal function with creatinine w as 1.9 day before yesterday and yesterday it came back up to 2.1. So, we did renal ultrasound and bl adder ultrasound, which were done yesterday and that came back negative. Nephrology consultation was requested from Dr. Cervantes yesterday, but as of this morning, audit consultant has not evaluated the pat ient and this morning creatinine is slightly better at 2.0, so I have decided to cancel the consult a nd discharge patient to go home. Medically, he is very stable. He is afebrile. Chest x-ray had kamla wn some right-sided pleural effusion. CAT scan of the chest had also confirmed the pleural effusion. No evidence of pneumonia. Patient does breathing exercise with incentive spirometry and was encour aged to continue to do so. Dr. Mariee did perform another aspiration of the right knee day before ye sterday because white count had gone up to 13.7 after it came down to normal and this repeat knee asp irate so far culture is negative. After negative results, Dr. Mariee called me yesterday evening and informed me that it is okay for patient to take prednisone as in the past. Patient had similar pres entation with joint pain, joint swelling, some leukocytosis and had responded very well to prednisone treatment. 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 We will see him n ext week at office and we will repeat blood work next week for followup on his CBC and chemistry resu lts. Patient drinks about 50 to 60 ounces of water a day and he was encouraged to continue to do so. QUINTEN/MODL Voice ID: [id number] Report ID: [id number]
--- NOTE | 2019-06-22 06:21 | DS ---
Date of Discharge: 06/21/2019 Disposition: Discharged to go home. Physical Examination: HEENT: Unremarkable. Lungs: Clear to auscultation. Bilateral good equal air entry. No rhonchi. No rales. Diminished a ir entry in the right basal region. Heart: Sounds normal. Abdomen: Soft. Bowel sounds normal. No guarding, rigidity, tenderness, or distention. Extremities: No leg edema. Right leg has dressing present. Right knee has mild swelling, unchanged . Laboratory Data: Last white count today 13, hemoglobin 10.1, platelets 484. Sodium today 143, potas sium 3.3, chloride 109, bicarb 26, BUN 21, creatinine 2.06, glucose 157, magnesium 1.5. Discharge Medication And Instructions: 1.Continue all prior home medication except stop pantoprazole. 2.Not take any Aleve or Motrin type of medications. 3.Follow up with Dr. Mariee this week on Wednesday or next week on Wednesday. 4.Follow up at my office in 1 week. 5.Take Levaquin 250 mg p.o. daily for 2 weeks and prednisone 10 mg, the patient is to take 2 tablets p.o. daily. Prescription was sent to his pharmacy from office and when I see him next week at [facility], we will taper off prednisone. QUINTEN/MODL Voice ID: [id number] Report ID: [id number]
== END 2019-06-21 10:48 | disposition home health service (06) | DRG 501 ==
LOC: 2ND 11:05 → OBSVTOIN 06-12 09:20
PROVIDERS: ADMIT Orthopaedic Surgery; ATTEND Orthopaedic Surgery
PROC: 0KNS0ZZ Release Right Lower Leg Muscle, Open Approach (ICD-10-PCS; 2019-06-09)
PROC: 0KNS0ZZ Release Right Lower Leg Muscle, Open Approach (ICD-10-PCS; 2019-06-09)
PROC: 0KNS0ZZ Release Right Lower Leg Muscle, Open Approach (ICD-10-PCS; 2019-06-09)
PROC: 30233N1 Transfusion of Nonautologous Red Blood Cells into Peripheral Vein, Percutaneous Approach (ICD-10-PCS; 2019-06-09)
PROC: 0KNS0ZZ Release Right Lower Leg Muscle, Open Approach (ICD-10-PCS; principal; 2019-06-09 14:00)
PROC: 0JQN0ZZ Repair Right Lower Leg Subcutaneous Tissue and Fascia, Open Approach (ICD-10-PCS; 2019-06-13)
PROC: 0S9C3ZX Drainage of Right Knee Joint, Percutaneous Approach, Diagnostic (ICD-10-PCS; 2019-06-13)
PROC: 0R9M3ZX Drainage of Left Elbow Joint, Percutaneous Approach, Diagnostic (ICD-10-PCS; 2019-06-13)
PROC: 0S9C3ZX Drainage of Right Knee Joint, Percutaneous Approach, Diagnostic (ICD-10-PCS; 2019-06-19)
DX: M79.A21 Nontraumatic compartment syndrome of right lower extremity (principal); N17.9 Acute kidney failure, unspecified; M25.461 Effusion, right knee; M25.422 Effusion, left elbow; T50.995A Adverse effect of other drugs, medicaments and biological substances, initial encounter; I10 Essential (primary) hypertension; E78.5 Hyperlipidemia, unspecified; D64.9 Anemia, unspecified; E87.6 Hypokalemia; K21.9 Gastro-esophageal reflux disease without esophagitis; M15.9 Polyosteoarthritis, unspecified; M11.20 Other chondrocalcinosis, unspecified site
CPT/HCPCS: 36415; 71045; 71046; 71250; 76770; 76857; 80048; 80053; 80202; 81001; 81003; 82248; 82550; 82553; 82570; 82962; 83036; 83605; 83735; 83970; 84132; 84156; 84550; 85014; 85018; 85025; 85610; 85652; 85730; 86140; 87040; 87070; 87075; 87077; 87086; 87088; 87186; 87205; 89050; 89060; 93005; 97110; 97116; 97163; 97164; 97530; G0378; G0379; J0690; J1170; J1650; J2001; J2175; J2250; J2270; J2405; J2704; J3010; J3475; J7030; J7512

== ENCOUNTER 2021-10-18 05:06 | Emergency (ER) | payer OTHER ==
--- OUTSIDE RECORDS SUMMARY | 2021-10-18 05:10 | XMS REPORT | Continuity of Care Document ---
:1930 Author Organization [facility] t Address [address] [place] [address] Care Team Providers Name Role Phone JOÃO, Zion Attending Clinician Unavailable Juan ACEVES Attending Clinician Unavailable João CARRION, A Attending Clinician Troy OBRIEN Attending Clinician Hazel Henry MD Attending Clinician Pob, Lab Main Attending Clinician Unavailable Only, Test Attending Clinician Unavailable Doctor Unassigned, Name Attending Clinician Unavailable CHAWLA Attending Clinician Unavailable JOÃO, Zion Admitting Clinician Unavailable João CARROIN, A Admitting Clinician Payers Payer Name Policy Type Policy Number Effective Date Expiration Date Yon alfaro MEDICARE PART A [id number] 1997 \T\ B 00:00:00 [employer] INDE[employer]ITY [id number] 2013 00:00:00 Problems This patient has no known problems. Allergies, Adverse Reactions, Alerts Allergy Allergy Status Severity Reaction(s) Onset Inactive Treating Comm ents Source Name Type Date Date Clinician NO KNOWN Drug Active [facility] ALLERGIE Class ity of S [facility] Medications Ordered Filled Start Stop Current Ordering Indication Dosage Frequency Signature Comments Components Source Medication Medication Date Date Medication? Clinician (SIG) Name Name Carvedilol Carvedilol Yes Brennen Watson defined [facility] PredniSONE PredniSONE Yes Brennen not [facility] Pantoprazol Pantoprazol Yes Brennen not [facility] Sodium e Sodium Mariee defined [facility] Pravastatin Pravastatin Yes Brennen not [facility] Sodium Sodium Mariee defined [facility] Hydrocodone Hydrocodone Yes Brennen not [facility] -Acetaminop -Acetaminop Mariee defined [facility] Metoprolol Metoprolol Yes Brennen not [facility] Tartrate Tartrate Mariee defined [facility] Amlodipine Amlodipine Yes Brennen TAKE [address] [facility] Besylate Besylate Mariee TABLET BY [facility] Procedures This patient has no known procedures. Encounters Start End Encounter Admission Attending Care Care Encounter Source Date/Time Date/Time Type Type Clinicians Facility Department ID 2021-09-20 [facility] [id number] [facility] 02:35:10 [facility] 2021-09-19 Outpatient Alan MONTERO [email or web address]OU[facility] [id number] Univers 13:02:35 [facility] 2021-08-11 2021-08-11 Outpatient [facility] [id number] 2021-02-20 2021-02-20 [facility] [id number] [facility] 2021-02-03 2021-02-03 Outpatient Alan ACEVES [facility] [id number] Univers 12:10:00 12:10:00 RADHA [id number] [facility] 2021-02-03 2021-02-03 Outpatient Alan ACEVES [facility] [id number] Univers 12:10:00 12:10:00 RADHA [facility] 2021-01-13 2021-01-13 Outpatient [facility] [id number] Univers 12:10:00 12:10:00 [id number] [facility] 2021-01-13 2021-01-13 [facility] [id number] [facility] 12:10:00 12:10:00 RADHA [facility] 2020-10-09 2020-10-09 [facility] [id number] 07:37:00 10:58:00 Encounter Reddy Baum [id number] [place] 4.2.7.2.686 Surgical [id number] [place] 071 2020-10-09 2020-10-09 Anesthesia Jose Angel Simmons [facility] [[email or web address] [id number] 09:56:00 10:31:00 Rony Henry [id number] [place] 4.2.7.2.686 Surgical [id number] [place] 020 2020-10-08 2020-10-08 Regulator Tester Elaine, [facility] [id number] 11:03:34 11:18:34 Visit Lab Main [place] [id number] [place] 4.2.7.2.686 Professio [id number] [address] 2020-10-08 2020-10-08 Laboratory Only, [facility] 1..840.114 [id number] 11:01:14 11:16:14 Only Test [place] 350.1.13.10 [place] 4.2.7.2.686 [place] [id number] [facility] 2020-10-08 2020-10-08 Outpatient R [facility] [id number] Univers 10:45:00 10:45:00 [id number] [facility] 2020-10-08 2020-10-08 [facility] [id number] [facility] 10:45:00 10:45:00 REDDY [facility] 2020-10-08 2020-10-08 Orders Doctor TESS 1..840.114 [id number] 00:00:00 00:00:00 Only Unassigned, [place] 350.1.13.10 [facility] 4.2.7.2.686 [id number] 2020-07-10 2020-07-10 [facility] [id number] 10:59:00 13:00:00 Encounter Reddy Donovan Sarika 350.1.13.10 [place] 4.2.7.2.686 [facility] [id number] Center 071 2020-07-09 2020-07-09 Outpatient R [facility] [id number] Univers 10:00:00 10:00:00 [id number] [facility]-07-09 2020-07-09 Outpatient R MAE CHAWLA [facility] [id number] Univers 10:00:00 10:00:00 [facility] 2020-07-09 2020-07-09 Laboratory Only, [facility] [id number] 09:30:21 09:45:21 Only Test Sarika 350.1.13.10 [place] 4.2.7.2.686 [place] [id number] 2020-07-03 2020-07-03 Outpatient R JOÃO [facility] [id number] Univers 08:45:00 08:45:00 REDDY [facility] 2019-08-25 2019-08-25 [facility] [id number] [facility] [address] 08:00:00 08:00:00 [facility] 2019-07-28 2019-07-28 [facility] [id number] [address] 08:30:00 08:30:00 [facility] ent Clinics 2019-07-20 2019-07-20 [facility] [id number] [address] 11:08:00 11:08:00 [facility] Clinics 2019-06-30 2019-06-30 [facility] [id number] [address] 08:00:00 08:00:00 [facility] 2019-06-28 2019-06-28 [facility] [id number] 13:15:00 13:15:00 [facility] 2019-06-28 2019-06-28 [facility] [id number] 09:09:00 09:09:00 [facility] 2019-06-23 2019-06-23 [facility] [id number] 09:30:00 09:30:00 [facility] 2019-06-21 2019-06-21 [facility] [id number] 11:30:00 11:30:00 [facility] 2019-06-21 2019-06-21 [facility] [id number] 10:00:00 10:00:00 [facility] 2019-06-09 2019-06-09 [facility] [id number] 09:30:00 09:30:00 [facility] 2019-05-31 2019-05-31 [facility] [id number] 08:00:00 08:00:00 [facility] 2019-05-24 2019-05-24 [facility] [id number] 08:00:00 08:00:00 [facility] 2019-05-17 2019-05-17 [facility] [id number] 10:30:00 10:30:00 [facility] Results This patient has no known results.
[2021-10-18] MEDS ORDERED: ALBUTEROL 2.5 MG/3 ML NEB SOL ONE ×2 (05:42→08:10)
[2021-10-18] MEDS ORDERED: IPRATROPIUM BROM 0.5MG/2.5ML ONE ×2 (05:42→05:43)
[2021-10-18 06:28] LABS: Absolute Lymphocytes (CBC) 1.5 K/uL (0.7-4.9); Basophils % 0.9 % (0-1.3); Hematocrit 39.3 % (39.6-49.0); MPV 8.8 fL (7.6-11.3); RBC Red Blood Cell Count 4.17 M/uL (4.33-5.43)
[2021-10-18 06:36] LABS: Protime INR 1.05
[2021-10-18 06:56] LABS: ALT/SGPT 21 U/L (12-78); AST/SGOT 22 U/L (15-37); Albumin 3.7 g/dL (3.4-5.0); Alkaline Phosphatase 104 U/L (45-117); BUN Blood Urea Nitrogen 18 mg/dL (7-18); Bicarbonate 26 mmol/L (21-32); Bilirubin Direct 0.1 mg/dL (0-0.2); Bilirubin Total 0.5 mg/dL (0.2-1.0); Glucose Level 124 mg/dL (74-106); Magnesium 1.8 mg/dL (1.8-2.4); NT PRO-BNP 263 pg/mL (<450); Potassium 3.7 mmol/L (3.5-5.1); Protein, Total 7.8 g/dL (6.4-8.2); Sodium Level 142 mmol/L (136-145); Troponin (Emerg Dept Use Only) < 0.02 ng/mL (0.0-0.045)
[2021-10-18] MEDS ORDERED: METHYLPREDNISOLONE 125 MG INJ ONE (07:29)
[2021-10-18] MEDS ORDERED: FAMOTIDINE 20 MG/2 ML VIAL IV ONE (07:29)
[2021-10-18] MEDS ORDERED: NA CHLORIDE 0.9% 100 ML ONE (07:29)
[2021-10-18] MEDS ORDERED: NA CHLORIDE 0.9% 500 ML ONE (07:29)
[2021-10-18] MEDS ORDERED: PIPERACIL/TAZO 3.375 GM VIAL IV ONE (07:30)
--- NOTE | 2021-10-18 07:59 | ER ---
Nurse's Notes [facility] Name: Lance Esparza Age: 89 yrs Sex: Male : 1930 Arrival Date: 10/18/2021 Time: 05:09 Bed 17 Private MD: Diagnosis: Unspecified bacterial pneumonia-aspiration;Cough;Dyspnea Presentation: 10/18 05:26 Chief complaint: Patient states: he thinks he may have inhaled some coffee and has been bb wheezing since Wednesday. Coronavirus screen: At this time, the client does not indicate any symptoms associated with coronavirus-19. Ebola Screen: No symptoms or risks identified at this time. Initial Sepsis Screen: Does the patient meet any 2 criteria? No. Patient's initial sepsis screen is negative. Does the patient have a suspected source of infection? No. Patient's initial sepsis screen is negative. Risk Assessment: Do you want to hurt yourself or someone else? Patient reports no desire to harm self or others. Onset of symptoms was October 17, 2021. 05:26 Method Of Arrival: Ambulatory bb 05:26 Acuity: KYLAH 3 bb Historical: - Allergies: 05: NKA; bb - Home Meds: 05:35 amlodipine 10 mg tab 1 tab once daily for hypertension [Active]; pravastatin 20 mg Oral cc4 tab 1 tab once daily for hyperlipidemia [Active]; pantoprazole 40 mg Oral TbEC 1 tab once daily for gastroesophageal reflux disease [Active]; hydrocodone-acetaminophen 7.5-325 mg Oral tab 1 tab every 4 hours [Active]; - PMHx: 05:35 Arthritis; Hyperlipidemia; Hypertension; cc4 - Immunization history:: Adult Immunizations up to date, Client reports receiving the 2nd dose of the Covid vaccine. - Social history:: Smoking status: Patient denies any tobacco usage or history of. Screenin:35 Abuse screen: Denies threats or abuse. Nutritional screening: No deficits noted. cc4 Tuberculosis screening: No symptoms or risk factors identified. Fall Risk None identified. Assessment: 05:35 General: Appears uncomfortable, Behavior is calm, cooperative. Pain: Denies pain. cc4 Neuro: No deficits noted. Level of Consciousness is awake, alert, obeys commands, Oriented to person, place, time, situation. Cardiovascular: No deficits noted. Heart tones S1 S2 Capillary refill < 3 seconds Patient's skin is warm and dry. Rhythm is sinus rhythm. Respiratory: No deficits noted. Airway is patent Respiratory effort is even, unlabored, Respiratory pattern is regular, symmetrical, Breath sounds with wheezes bilaterally. GI: No signs and/or symptoms were reported involving the gastrointestinal system. : No signs and/or symptoms were reported regarding the genitourinary system. EENT: No signs and/or symptoms were reported regarding the EENT system. Derm: No deficits noted. Skin is intact. Musculoskeletal: No deficits noted. Capillary refill < 3 seconds, Range of motion: intact in all extremities, Reports aspirating coffee with coffee grounds in it yesterday with cough \T\ wheezing since. 05:40 Reassessment: Dr. Villalobos in to see \T\ accessing patient. cc4 05:45 Reassessment: Albuterol/Atrovent treatment given as ordered; EKG done. cc4 05:55 Reassessment: # 20 g catheter inserted into right FA \T\ converted to saline lock with cc4 blood drawn \T\ sent to lab, [facility]. Vital Signs: 05:26 BP 139 / 79; Pulse 90; Resp 20 S; Temp 97.5(O); Pulse Ox 96% on R/A; Weight 70.31 kg bb (R); Height 5 ft. 5 in. (165.10 cm) (R); Pain 0/10; 07:30 BP 122 / 61; Pulse 94; Resp 18; Temp 97.8; Pulse Ox 96% on R/A; sl2 08:30 BP 134 / 64; Pulse 97; Resp 20; Temp 97.9; Pulse Ox 95% on R/A; sl2 05:26 Body Mass Index 25.79 (70.31 kg, 165.10 cm) bb ED Course: 05:09 Patient arrived in ED. bp1 05:21 Jason Villalobos MD is Attending Physician. mh7 05:27 Triage completed. 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 05:33 Sawyer Guidry, VINCENZO is Primary Nurse. mr2 05:35 Patient has correct armband on for positive identification. Bed in low position. Call cc4 light in reach. Side rails up X 1. 05:35 portable track line marker on. Pulse ox on. NIBP on. cc4 05:49 XRAY Chest (1 view) Sent. cc4 06:14 XRAY Chest (1 view) In Process Unspecified. EDMS 06:20 Inserted saline lock: 20 gauge in right forearm, using aseptic technique. Blood oe collected. 06:21 Basic Metabolic Panel Sent. cc4 06:21 CBC with Diff Sent. cc4 06:21 LFT's Sent. cc4 06:21 Magnesium Sent. cc4 06:22 NT PRO-BNP Sent. cc4 06:22 PT-INR Sent. cc4 06:22 Troponin (emerg Dept Use Only) Sent. cc4 07:10 Attending Physician role handed off by Jason Villalobos MD sonido 07:10 Boom Rowe MD is Attending Physician. sonido 07:[address] via stretcher. sl2 07:46 CT Chest Wo Con In Process Unspecified. EDMS 07:50 Patient moved back from CT. sl2 07:56 Zion Jasmine MD is Referral Physician. sonido 08:58 No provider procedures requiring assistance completed. sl2 09:03 IV discontinued, intact, bleeding controlled, No redness/swelling at site. Pressure tp1 dressing applied. 09:06 IV discontinued. sl2 Administered Medications: 05:45 Drug: Albuterol 2.5 mg Route: Inhalation; cc4 07:23 Follow up: Response: No adverse reaction sl2 05:45 Drug: AtroVENT (ipratropium) Aerosol 0.5 mg Route: Inhalation; cc4 07:23 Follow up: Response: No adverse reaction sl2 07:29 Drug: Pepcid (famotidine) 20 mg Route: IVP; Site: right forearm; sl2 08:54 Follow up: Response: No adverse reaction sl2 07:33 Drug: NS 0.9% 500 ml Route: IV; Rate: bolus; Site: right forearm; sl2 08:56 Follow up: IV Status: Completed infusion; IV Intake: 500ml sl2 07:33 Drug: SOLU-Medrol (methylPrednisoLONE) 125 mg Route: IVP; Site: right forearm; sl2 08:54 Follow up: Response: No adverse reaction sl2 07:40 Drug: Zosyn (piperacillin-tazobactam) 3.375 grams Route: IVPB; Infused Over: 60 mins; sl2 Site: right antecubital; 08:55 Follow up: Response: No adverse reaction; IV Status: Completed infusion; IV Intake: sl2 100ml 08:15 Drug: Albuterol 2.5 mg Route: Inhalation; sl2 08:53 Follow up: Response: No adverse reaction sl2 08:20 Drug: Augmentin (Amoxicillin-Clavulanate) 875 mg Route: PO; sl2 08:53 Follow up: Response: No adverse reaction sl2 08:20 Drug: predniSONE 20 mg Route: PO; sl2 08:54 Follow up: Response: No adverse reaction sl2 Intake: 08:55 IV: 100ml; Total: 100ml. sl2 08:56 IV: 500ml; Total: 600ml. sl2 Outcome: 07:59 Discharge ordered by . sonido 08:59 Discharged to home ambulatory. sl2 08:59 Condition: stable 08:59 Discharge instructions given to patient, Instructed on discharge instructions, follow up and referral plans. medication usage, Demonstrated understanding of Prescriptions given X 3. 09:07 Patient left the ED. sl2 Signatures: Dispatcher [employer] EDMS Boom Rowe MD MD cha Ballard, Brenda, RN RN bb Eddie Hanna Brittany bp1 Holmes, Maurice, MD MD 7 Eliza Luna, RN RN cc4 Sawyer Guidry RN RN mr2 Agueda Ponce RN RN sl2 Jacquelyn Jha tp1
--- NOTE | 2021-10-18 08:00 | RAD REPORT ---
EXAM DESCRIPTION: CT - Thorax Wo Con - 10/18/2021 7:46 am CLINICAL HISTORY: pneumonia COMPARISON: Thorax Wo Con dated 06/19/2019; CTANGIO CHEST FOR PE dated 10/25/2014 FINDINGS: Chest Wall: No suspicious thyroid nodules or pathologic lymphadenopathy. Lungs: No acute abnormality. Pleura: No significant effusions or pneumothorax. Mediastinum/graciela: No pathologic lymphadenopathy. Pulmonary arteries/Aorta: Limited evaluation without contrast. No aortic aneurysm. Heart: A few incidental findings as noted above. Normal heart size. Multi-vessel coronary artery dise ase. Aortic valve calcifications. Upper abdomen: No acute abnormality. Renal cysts. Bones: Similar abnormal configuration of the T1 and T3 vertebral bodies which are mixed lytic and scl erotic. Slight L1 compression deformity may represent a remote compression fracture. It is not appear acute. All CT scans are performed using dose optimization technique as appropriate and may include automated exposure control or mA/KV adjustment according to patient size. IMPRESSION: No acute findings within the chest. Specifically, no CT evidence of pneumonia.
--- NOTE | 2021-10-18 08:00 | EDPHYS ---
Physician Documentation [facility] Name: Lance Esparza Age: 89 yrs Sex: Male : 1930 Arrival Date: 10/18/2021 Time: 05:09 Bed 17 Private MD: ED Physician Boom Rowe HPI: 10/18 05:41 This 89 yrs old Male presents to ER via Ambulatory with complaints of Cough, Wheezing. mh7 05:41 The patient or guardian reports cough, that is intermittent, described as moderate, mh7 with no sputum, Wheezing. Onset: The symptoms/episode began/occurred yesterday. Severity of symptoms: At their worst the symptoms were moderate, last night, in the emergency department the symptoms are unchanged. Modifying factors: The symptoms are alleviated by nothing, the symptoms are aggravated by nothing. Associated signs and symptoms: Pertinent negatives: chest pain, diarrhea, ear ache, fever, nausea, rhinorrhea, sore throat, vomiting. Patient states that he was drinking coffee yesterday morning and felt as of it went into his lungs. He states that he has been having wheezing and cough since then. Denies any fever, chest pain, abdominal pain, nausea, vomiting.. Historical: - Allergies: 05:27 NKA; bb - Home Meds: 05:35 amlodipine 10 mg tab 1 tab once daily for hypertension [Active]; pravastatin 20 mg Oral cc4 tab 1 tab once daily for hyperlipidemia [Active]; pantoprazole 40 mg Oral TbEC 1 tab once daily for gastroesophageal reflux disease [Active]; hydrocodone-acetaminophen 7.5-325 mg Oral tab 1 tab every 4 hours [Active]; - PMHx: 05:35 Arthritis; Hyperlipidemia; Hypertension; cc4 - Immunization history:: Adult Immunizations up to date, Client reports receiving the 2nd dose of the Covid vaccine. - Social history:: Smoking status: Patient denies any tobacco usage or history of. ROS: 05:41 Constitutional: Negative for fever, chills, and weight loss, Eyes: Negative for injury, mh7 pain, redness, and discharge, ENT: Negative for injury, pain, and discharge, Neck: Negative for injury, pain, and swelling, Cardiovascular: Negative for chest pain, palpitations, and edema, Abdomen/GI: Negative for abdominal pain, nausea, vomiting, diarrhea, and constipation, Back: Negative for injury and pain, : Negative for injury, bleeding, discharge, and swelling, MS/Extremity: Negative for injury and deformity, Skin: Negative for injury, rash, and discoloration, Neuro: Negative for headache, weakness, numbness, tingling, and seizure, Psych: Negative for depression, anxiety, suicide ideation, homicidal ideation, and hallucinations, Allergy/Immunology: Negative for hives, rash, and allergies, Endocrine: Negative for neck swelling, polydipsia, polyuria, polyphagia, and marked weight changes, Hematologic/Lymphatic: Negative for swollen nodes, abnormal bleeding, and unusual bruising. Exam: 05:41 Constitutional: This is a well developed, well nourished patient who is awake, alert, mh7 and in no acute distress. Head/Face: Normocephalic, atraumatic. Eyes: Pupils equal round and reactive to light, extra-ocular motions intact. Lids and lashes normal. Conjunctiva and sclera are non-icteric and not injected. Cornea within normal limits. Periorbital areas with no swelling, redness, or edema. Neck: Trachea midline, no thyromegaly or masses palpated, and no cervical lymphadenopathy. Supple, full range of motion without nuchal rigidity, or vertebral point tenderness. No Meningismus. Chest/axilla: Normal chest wall appearance and motion. Nontender with no deformity. No lesions are appreciated. Cardiovascular: Regular rate and rhythm with a normal S1 and S2. No gallops, murmurs, or rubs. Normal PMI, no JVD. No pulse deficits. 05:41 Abdomen/GI: Soft, non-tender, with normal bowel sounds. No distension or tympany. No guarding or rebound. No evidence of tenderness throughout. Back: No spinal tenderness. No costovertebral tenderness. Full range of motion. Skin: Warm, dry with normal turgor. Normal color with no rashes, no lesions, and no evidence of cellulitis. MS/ Extremity: Pulses equal, no cyanosis. Neurovascular intact. Full, normal range of motion. Neuro: Awake and alert, GCS 15, oriented to person, place, time, and situation. Cranial nerves II-XII grossly intact. Motor strength 5/5 in all extremities. Sensory grossly intact. Cerebellar exam normal. Normal gait. Psych: Awake, alert, with orientation to person, place and time. Behavior, mood, and affect are within normal limits. 05:41 Respiratory: the patient does not display signs of respiratory distress, Respirations: prolonged exhalation, that is moderate, Breath sounds: wheezing: expiratory that is moderate, is heard diffusely, Respiratory rate: 20 08:03 ECG was reviewed by the Attending Physician. [facility] Vital Signs: 05:26 BP 139 / 79; Pulse 90; Resp 20 S; Temp 97.5(O); Pulse Ox 96% on R/A; Weight 70.31 kg bb (R); Height 5 ft. 5 in. (165.10 cm) (R); Pain 0/10; 07:30 BP 122 / 61; Pulse 94; Resp 18; Temp 97.8; Pulse Ox 96% on R/A; sl2 08:30 BP 134 / 64; Pulse 97; Resp 20; Temp 97.9; Pulse Ox 95% on R/A; sl2 05:26 Body Mass Index 25.79 (70.31 kg, 165.10 cm) bb MDM: 07:10 Patient medically screened. [facility] 07:11 Data reviewed: vital signs, nurses notes, lab test result(s), EKG, radiologic studies, [facility] plain films. 08:01 Differential Diagnosis: Bronchitis Pneumonia. Data interpreted: information officer: rate sonido is 90 beats/min, rhythm is regular, Pulse oximetry: on room air is 96 %. Test interpretation: by ED physician or midlevel provider: ECG, plain radiologic studies. Counseling: I had a detailed discussion with the patient and/or guardian regarding: the historical points, exam findings, and any diagnostic results supporting the discharge/admit diagnosis, lab results, radiology results, the need for outpatient follow up, for definitive care, an grid trimmer. 10/18 05:40 Order name: Basic Metabolic Panel; Complete Time: 06:56 10/18 05:40 Order name: CBC with Diff; Complete Time: 06:49 10/18 05:40 Order name: LFT's; Complete Time: 06:56 10/18 05:40 Order name: Magnesium; Complete Time: 06:56 10/18 05:40 Order name: NT PRO-BNP; Complete Time: 06:56 10/18 05:40 Order name: PT-INR; Complete Time: 06:49 10/18 05:40 Order name: Troponin (emerg Dept Use Only); Complete Time: 06:56 10/18 05:40 Order name: XRAY Chest (1 view); Complete Time: 19:17 10/18 07:04 Order name: CT Chest Wo Con; Complete Time: 19:17 10/18 05:40 Order name: Cardiac monitoring; Complete Time: 05:49 10/18 05:40 Order name: EKG - Nurse/Tech; Complete Time: 06:03 10/18 05:40 Order name: IV Saline Lock; Complete Time: 06:21 10/18 05:40 Order name: Labs collected and sent; Complete Time: 06:21 10/18 05:40 Order name: O2 Sat Monitoring; Complete Time: 05:49 EC:03 Rate is 80 beats/min. Rhythm is regular. QRS Orange is Normal. LA interval is normal. QRS sonido interval is normal. QT interval is normal. No Q waves. T waves are Normal. No ST changes noted. Clinical impression: Normal ECG and No evidence of ischemia. Interpreted by me. Reviewed by me. Administered Medications: 05:45 Drug: Albuterol 2.5 mg Route: Inhalation; cc4 07:23 Follow up: Response: No adverse reaction 2 05:45 Drug: AtroVENT (ipratropium) Aerosol 0.5 mg Route: Inhalation; cc4 07:23 Follow up: Response: No adverse reaction 2 07:29 Drug: Pepcid (famotidine) 20 mg Route: IVP; Site: right forearm; sl2 08:54 Follow up: Response: No adverse reaction sl2 07:33 Drug: NS 0.9% 500 ml Route: IV; Rate: bolus; Site: right forearm; sl2 08:56 Follow up: IV Status: Completed infusion; IV Intake: 500ml sl2 07:33 Drug: SOLU-Medrol (methylPrednisoLONE) 125 mg Route: IVP; Site: right forearm; sl2 08:54 Follow up: Response: No adverse reaction 2 07:40 Drug: Zosyn (piperacillin-tazobactam) 3.375 grams Route: IVPB; Infused Over: 60 mins; sl2 Site: right antecubital; 08:55 Follow up: Response: No adverse reaction; IV Status: Completed infusion; IV Intake: sl2 100ml 08:15 Drug: Albuterol 2.5 mg Route: Inhalation; sl2 08:53 Follow up: Response: No adverse reaction sl2 08:20 Drug: Augmentin (Amoxicillin-Clavulanate) 875 mg Route: PO; sl2 08:53 Follow up: Response: No adverse reaction sl2 08:20 Drug: predniSONE 20 mg Route: PO; sl2 08:54 Follow up: Response: No adverse reaction sl2 Disposition Summary: 10/18/21 07:59 Discharge Ordered Location: Home sonido Problem: new sonido Symptoms: have improved sonido Condition: Stable sonido Diagnosis - Unspecified bacterial pneumonia - aspiration sonido - Cough sonido - Dyspnea sonido Followup: sonido - With: Zion Jasmine MD - When: 2 - 3 days - Reason: Recheck today's complaints, Re-evaluation by your physician Discharge Instructions: - Discharge Summary Sheet sonido - Cool Mist Vaporizer sonido - Cough, Adult, [id number]-wl-[id number] sonido - Cough, Adult sonido - Aspiration Pneumonia, Adult [facility] Forms: - Medication Reconciliation Form [facility] - Thank You Letter sonido - Antibiotic Education sonido - Prescription Opioid Use [facility] Prescriptions: - albuterol sulfate 90 mcg/actuation Inhalation HFA aerosol inhaler - inhale 2 puff by INHALATION route every 4-6 hours; 1 Pump; Refills: 0, Product [facility] Selection Permitted - Augmentin 875-125 mg Oral Tablet - take 1 tablet by ORAL route every 12 hours for 10 days; 20 tablet; Refills: 0, [facility] Product Selection Permitted - Medrol (Jacinto) 4 mg Oral Tablets, Dose Pack - take 1 tablet by ORAL route as directed - follow package instructions; 1 [facility] packet; Refills: 0, Product Selection Permitted Signatures: Dispatcher [employer] Boom Heredia MD MD cha Ballard, Brenda RN RN Jason Anderson MD MD mh7 Cooper, Christie RN RN cc4 Agueda Ponce RN RN sl2
--- NOTE | 2021-10-18 08:04 | RAD REPORT ---
EXAM DESCRIPTION: RAD - Chest Single View - 10/18/2021 6:14 am CLINICAL HISTORY: COUGH COMPARISON: Chest Pa And Lat (2 Views) dated 06/26/2021; Chest Pa And Lat (2 Views) dated 06/29/2019; Ch est Pa And Lat (2 Views) dated 06/19/2019; Chest Single View dated 06/12/2019 FINDINGS: Lines: None. Lungs: No evidence of edema or pneumonia. Pleural: No significant pleural effusions or pneumothorax. Cardiac: The heart size is within normal limits. Bones: No acute fractures. Other: IMPRESSION: No acute cardiopulmonary disease.
[2021-10-18] MEDS ORDERED: AMOX/K CLAV 875 MG TAB ONE (08:10)
[2021-10-18] MEDS ORDERED: predniSONE 20 MG TAB ONE (08:10)
[2021-10-18 09:25] VITALS: BP 134/64; TEMP 97.9; O2SAT 95
--- NOTE | 2021-10-21 07:09 | EKG ---
Test Date: 2021-10-18 Test Time: 05:58:34 Professional Nurse: GUALBERTO MEASUREMENT RESULTS: Intervals: Rate: 80 OR: 150 QRSD: 88 QT: 414 QTc: 477 [place]: P: 29 OR: 150 QRS: 25 T: 27 INTERPRETIVE STATEMENTS: Normal sinus rhythm Normal ECG Compared to ECG 06/09/2019 13:02:52 No significant changes Electronically Signed On 10-21-21 07:04:56 ANGLE FURNACEMAN by Mart Cedillo
== END 2021-10-18 09:07 | disposition home or self-care (01) ==
LOC: ER 05:06
DX: J69.0 Pneumonitis due to inhalation of food and vomit (principal); R06.00 Dyspnea, unspecified; K21.9 Gastro-esophageal reflux disease without esophagitis; I10 Essential (primary) hypertension; E78.5 Hyperlipidemia, unspecified
CPT/HCPCS: 96365; 93005; 85025; 80048; 36415; 83735; 85610; 80076; 84484; 83880; 71250; 71045; 96375; 99285; J2543; J7050; J2930; J7512